=== PATIENT | male | born 2000 | race Caucasian/White ===

== ENCOUNTER 2020-07-04 09:29 | Day surgery (SDC) | payer OTHER ==
[2020-07-04] MEDS ORDERED: Ondansetron 4 MG/2 ML SDV IVPUSH ONE (09:54)
[2020-07-04] MEDS ORDERED: Sodium Chloride 0.9% 1,000 ML IV ONE (09:54)
[2020-07-04] MEDS ORDERED: Famotidine 20 MG/2 ML SDV IVPUSH ONE (09:54)
[2020-07-04] MEDS ORDERED: Morphine 4 MG/ML Syringe IVPUSH ONE ×2 (09:54→13:33)
[2020-07-04] MEDS ORDERED: Sodium Chloride 0.9% 2.5 ML Syringe FLUSH PRN (09:54)
[2020-07-04] MEDS ORDERED: Sodium Chloride 0.9% 10 ML Syringe FLUSH PRN (09:54)
--- NOTE | 2020-07-04 09:57 | EDM.PDOC ---
ED HPI GENERAL MEDICAL PROBLEM - General Chief Complaint: Abdominal Pain Stated Complaint: STOMACH PAIN AND TESTICLES PAIN Time Seen by Provider: 07/04/20 09:51 Source of Information: Reports: Patient History Limitations: Reports: No Limitations - History of Present Illness INITIAL COMMENTS - FREE TEXT/NARRATIVE: 20M no PMHx nor PSHx presents for abdominal pain, N/V, and testicular pain since around 3AM. [place] fine last night. Woke up from sleep with intense pain. Has had many episodes of non-bloody emesis. Pain feels like it is from lower pelvis shooting up into abdomen and down into testicles. Pain is b/l. No known fevers. No cough, SOB. No dysuria, hematuria. No penile discharge. Patient is not sexually active. Abdominal Pain Pain Score (Numeric/FACES): 10 - Related Data Allergies Allergy/AdvReac Type Severity Reaction Status Date / Time No Known Allergies Allergy Verified 07/04/20 09:42 Home Meds: Home Meds . [No Known Home Meds] 07/04/20 [History] Past Medical History - Past Health History Medical/Surgical History: Denies Medical/Surgical History - Infectious Disease History Infectious Disease History: Reports: None - Past Surgical History HEENT Surgical History: Reports: Adenoidectomy, Tonsillectomy Social & Family History - Family History Family Medical History: Noncontributory - Tobacco Use Years of Tobacco use: 7 - Caffeine Use Caffeine Use: Reports: None - Recreational Drug Use Recreational Drug Use: Yes Recreational Drug Type: Reports: Marijuana/Hashish Recreational Drug Use Frequency: Socially ED ROS GENERAL - Review of Systems Review Of Systems: Comprehensive ROS is negative, except as noted in HPI. ED EXAM, GI/ABD - Physical Exam Exam: See Below Exam Limited By: No Limitations General Appearance: Alert, WD/WN, Other (uncomfortable appearing holding lower abdomen ) Ears: Normal External Exam Nose: Normal Inspection Throat/Mouth: Normal Inspection, Normal Voice, No Airway Compromise Head: Atraumatic, Normocephalic Respiratory/Chest: No Respiratory Distress, Lungs Clear, Normal Breath Sounds, No Accessory Muscle Use Cardiovascular: Normal Peripheral Pulses, Regular Rate, Rhythm GI/Abdominal Exam: Soft, No Distention, Other (diffuse abdominal TTP without guarding or rebound) (Male) Exam: No Hernia, Normal Inspection, Circumcised, Cremasteric Reflex, Testicular Tenderness (L), Testicular Tenderness (R). No: Suprapubic Fullness, Testicular Mass, Urethral Discharge Extremities: Normal Inspection Neurological: Alert Psychiatric: Normal Affect, Normal Mood Skin Exam: Warm, Dry, Intact, Normal Color Course - Vital Signs Last Recorded V/S: Last Vital Signs Temp 97.0 F 07/04/20 09:43 Pulse 106 H 07/04/20 13:00 Resp 13 07/04/20 13:00 BP 131/86 07/04/20 13:00 Pulse Ox 96 07/04/20 13:00 - Orders/Labs/Meds Orders: Active Orders 24 hr Category Date Time Status Scrotal Duplex Ltd [US] Routine Exams 07/04/20 Taken Piperacillin/Tazobactam [Piperacil-Tazobact] 3.375 gm Med 07/04/20 13:29 Active Sodium Chloride 0.9% [Normal Saline] 50 ml IV ONETIME Sodium Chloride 0.9% [Saline Flush] Med 07/04/20 09:54 Active 10 ml FLUSH ASDIRECTED PRN Sodium Chloride 0.9% [Saline Flush] Med 07/04/20 09:54 Active 2.5 ml FLUSH ASDIRECTED PRN Saline Lock Insert [OM.PC] Stat Oth 07/04/20 09:54 Ordered Medication Orders Piperacillin Sod/Tazobactam (Sod 3.375 gm/ Sodium Chloride) 50 mls @ 100 mls/hr IV ONETIME ONE Stop: 07/04/20 13:58 Sodium Chloride (Saline Flush) 10 ml FLUSH ASDIRECTED PRN PRN Reason: Keep Vein Open Last Admin: 07/04/20 10:13 Dose: 10 ml Documented by: BRITTNI Sodium Chloride (Saline Flush) 2.5 ml FLUSH ASDIRECTED PRN PRN Reason: Keep Vein Open Last Admin: 07/04/20 10:13 Dose: 2.5 ml Documented by: BRITTNI Labs: Laboratory Tests 07/04/20 07/04/20 07/04/20 Range/Units 10:10 10:10 10:10 WBC 16.63 H (4.0-11.0) K/uL RBC 5.75 (4.50-5.90) M/uL Hgb 17.3 H (13.0-17.0) g/dL Hct 48.6 (38.0-50.0) % MCV 84.5 (80.0-98.0) fL MCH 30.1 (27.0-32.0) pg MCHC 35.6 (31.0-37.0) g/dL RDW Std Deviation 38.2 (28.0-62.0) fl RDW Coeff of [place] 13 (11.0-15.0) % Plt Count 278 (150-400) K/uL MPV 10.10 (7.40-12.00) fL Neut % (Auto) 87.8 H (48.0-80.0) % Lymph % (Auto) 5.5 L (16.0-40.0) % [place] % (Auto) 6.4 (0.0-15.0) % Eos % (Auto) 0.1 (0.0-7.0) % Baso % (Auto) 0.2 (0.0-1.5) % Neut # (Auto) 14.6 H (1.4-5.7) K/uL Lymph # (Auto) 0.9 (0.6-2.4) K/uL [place] # (Auto) 1.1 H (0.0-0.8) K/uL Eos # (Auto) 0.0 (0.0-0.7) K/uL Baso # (Auto) 0.0 (0.0-0.1) K/uL Nucleated RBC % 0.0 /100WBC Nucleated RBCs # 0 K/uL Lactate 0.9 (0.20-2.00) mmol/L Sodium 136 (136-148) mmol/L Potassium 3.8 (3.5-5.1) mmol/L Chloride 99 (98-107) mmol/L Carbon Dioxide 26.4 (21.0-32.0) mmol/L BUN 14 (7.0-18.0) mg/dL Creatinine 0.9 (0.8-1.3) mg/dL Est Cr Clr Drug Dosing 126.00 mL/min Estimated GFR (MDRD) > 60.0 ml/min Glucose 100 (74-106) mg/dL Calcium 9.5 (8.5-10.1) mg/dL Total Bilirubin 1.3 H (0.2-1.0) mg/dL AST 38 H (15-37) IU/L ALT 33 (14-63) IU/L Alkaline Phosphatase 75 (46-116) U/L Total Protein 8.4 H (6.4-8.2) g/dL Albumin 5.4 H (3.4-5.0) g/dL Globulin 3.0 (2.6-4.0) g/dL Albumin/Globulin Ratio 1.8 H (0.9-1.6) Lipase 48 L (73-393) U/L Urine Color Urine Appearance Urine pH (5.0-8.0) Ur Specific [place] (1.001-1.035) Urine Protein (NEGATIVE) mg/dL Urine Glucose (UA) (NEGATIVE) mg/dL Urine Ketones (NEGATIVE) mg/dL Urine Occult Blood (NEGATIVE) Urine Nitrite (NEGATIVE) Urine Bilirubin (NEGATIVE) Urine Urobilinogen (<2.0) EU/dL Ur Leukocyte Esterase (NEGATIVE) Urine RBC (0-2/HPF) Urine WBC (0-5/HPF) Ur Epithelial Cells (NONE-FEW) Urine Bacteria (NEGATIVE) 07/04/20 Range/Units 12:25 WBC (4.0-11.0) K/uL RBC (4.50-5.90) M/uL Hgb (13.0-17.0) g/dL Hct (38.0-50.0) % MCV (80.0-98.0) fL MCH (27.0-32.0) pg MCHC (31.0-37.0) g/dL RDW Std Deviation (28.0-62.0) fl RDW Coeff of [place] (11.0-15.0) % Plt Count (150-400) K/uL MPV (7.40-12.00) fL Neut % (Auto) (48.0-80.0) % Lymph % (Auto) (16.0-40.0) % [place] % (Auto) (0.0-15.0) % Eos % (Auto) (0.0-7.0) % Baso % (Auto) (0.0-1.5) % Neut # (Auto) (1.4-5.7) K/uL Lymph # (Auto) (0.6-2.4) K/uL [place] # (Auto) (0.0-0.8) K/uL Eos # (Auto) (0.0-0.7) K/uL Baso # (Auto) (0.0-0.1) K/uL Nucleated RBC % /100WBC Nucleated RBCs # K/uL Lactate (0.20-2.00) mmol/L Sodium (136-148) mmol/L Potassium (3.5-5.1) mmol/L Chloride (98-107) mmol/L Carbon Dioxide (21.0-32.0) mmol/L BUN (7.0-18.0) mg/dL Creatinine (0.8-1.3) mg/dL Est Cr Clr Drug Dosing mL/min Estimated GFR (MDRD) ml/min Glucose (74-106) mg/dL Calcium (8.5-10.1) mg/dL Total Bilirubin (0.2-1.0) mg/dL AST (15-37) IU/L ALT (14-63) IU/L Alkaline Phosphatase (46-116) U/L Total Protein (6.4-8.2) g/dL Albumin (3.4-5.0) g/dL Globulin (2.6-4.0) g/dL Albumin/Globulin Ratio (0.9-1.6) Lipase (73-393) U/L Urine Color YELLOW Urine Appearance CLEAR Urine pH 6.0 (5.0-8.0) Ur Specific [place] 1.025 (1.001-1.035) Urine Protein NEGATIVE (NEGATIVE) mg/dL Urine Glucose (UA) NEGATIVE (NEGATIVE) mg/dL Urine Ketones >=80 (NEGATIVE) mg/dL Urine Occult Blood NEGATIVE (NEGATIVE) Urine Nitrite NEGATIVE (NEGATIVE) Urine Bilirubin NEGATIVE (NEGATIVE) Urine Urobilinogen 1.0 (<2.0) EU/dL Ur Leukocyte Esterase TRACE H (NEGATIVE) Urine RBC 0-2 (0-2/HPF) Urine WBC 3-6 (0-5/HPF) Ur Epithelial Cells FEW (NONE-FEW) Urine Bacteria RARE (NEGATIVE) Meds: Medications Generic Name Dose Route Start Last Admin Trade Name Freq PRN Reason Stop Dose Admin Piperacillin Sod/Tazobactam 50 mls @ 100 mls/hr 07/04/20 13:29 Sod 3.375 gm/ Sodium Chloride IV 07/04/20 13:58 ONETIME ONE Sodium Chloride 10 ml 07/04/20 09:54 07/04/20 10:13 Saline Flush FLUSH 10 ml ASDIRECTED PRN Administration Keep Vein Open Sodium Chloride 2.5 ml 07/04/20 09:54 07/04/20 10:13 Saline Flush FLUSH 2.5 ml ASDIRECTED PRN Administration Keep Vein Open Discontinued Medications Generic Name Dose Route Start Last Admin Trade Name Freq PRN Reason Stop Dose Admin Famotidine 20 mg 07/04/20 09:54 07/04/20 10:05 Pepcid IVPUSH 07/04/20 09:55 20 mg ONETIME ONE Administration Sodium Chloride 1,000 mls @ 999 mls/hr 07/04/20 09:54 07/04/20 10:04 Normal Saline IV 07/04/20 10:54 999 mls/hr .Bolus ONE Administration Iopamidol 80 ml 07/04/20 13:16 07/04/20 13:17 Isovue Multipack-370 (76%) IVPUSH 07/04/20 13:17 80 ml ONETIME STA Administration Morphine Sulfate 4 mg 07/04/20 09:54 07/04/20 10:13 Morphine IVPUSH 07/04/20 09:55 4 mg ONETIME ONE Administration Morphine Sulfate 4 mg 07/04/20 13:33 Morphine IVPUSH 07/04/20 13:34 ONETIME ONE Ondansetron HCl 4 mg 07/04/20 09:54 07/04/20 10:04 Zofran IVPUSH 07/04/20 09:55 4 mg ONETIME ONE Administration - Re-Assessments/Exams Free Text/Narrative Re-Assessment/Exam: 07/04/20 13:37 Dr. Lawton agrees to admit to her service for acute appendicitis. Departure - Departure Time of Disposition: 13:36 Disposition: Admitted As Inpatient 66 Clinical Impression: Appendicitis Qualifiers: Appendicitis type: acute appendicitis Acute appendicitis type: unspecified acute appendicitis type Qualified Code(s): K35.80 - Unspecified acute appendicitis - Discharge Information Referrals: PCP,None [Primary Care Provider] - Forms: ED Department Discharge Sepsis Event Note (ED) - Evaluation Sepsis Screening Result: No Definite Risk - Focused Exam Vital Signs: Vital Signs Temp Pulse Resp BP Pulse Ox 07/04/20 13:00 106 H 13 131/86 96 07/04/20 09:43 97.0 F 87 16 135/72 98 - My Orders Last 24 Hours: My Active Orders 07/04/20 Scrotal Duplex Ltd [US] Routine 07/04/20 09:54 Sodium Chloride 0.9% [Saline Flush] 10 ml FLUSH ASDIRECTED PRN Sodium Chloride 0.9% [Saline Flush] 2.5 ml FLUSH ASDIRECTED PRN Saline Lock Insert [OM.PC] Stat 07/04/20 13:29 Piperacillin/Tazobactam [Piperacil-Tazobact] 3.375 gm Sodium Chloride 0.9% [Normal Saline] 50 ml IV ONETIME - Assessment/Plan Last 24 Hours: My Active Orders 07/04/20 Scrotal Duplex Ltd [US] Routine 07/04/20 09:54 Sodium Chloride 0.9% [Saline Flush] 10 ml FLUSH ASDIRECTED PRN Sodium Chloride 0.9% [Saline Flush] 2.5 ml FLUSH ASDIRECTED PRN Saline Lock Insert [OM.PC] Stat 07/04/20 13:29 Piperacillin/Tazobactam [Piperacil-Tazobact] 3.375 gm Sodium Chloride 0.9% [Normal Saline] 50 ml IV ONETIME
[2020-07-04 10:54] LABS: BLOOD UREA NITROGEN,BUN 14 mg/dL (7.0-18.0); CARBON DIOXIDE,CO2 26.4 mmol/L (21.0-32.0); CHLORIDE,CL 99 mmol/L (98-107); GLUCOSE RANDOM 100 mg/dL (74-106); LIPASE 48 U/L (73-393); POTASSIUM,K 3.8 mmol/L (3.5-5.1); SODIUM,NA 136 mmol/L (136-148)
--- NOTE | 2020-07-04 12:08 | US ---
INDICATION: Testicular pain, clinical concern of torsion versus epididymitis TECHNIQUE: Ultrasound of the scrotum and contents. Sonographic mina-scale images were obtained with spectral and color Doppler waveform and spectral waveform analysis of the testicles. COMPARISON: None FINDINGS: Right testicle: 4.9 x 2.0 x 3.0 cm. Normal echotexture. No masses. No suspicious calcifications. Normal arterial and venous and blood flow using Doppler and spectral waveform analysis. Left testicle: 4.9 x 2.3 x 2.9 cm. Normal echotexture. No masses. No suspicious calcifications. Normal arterial and venous and blood flow using Doppler and spectral waveform analysis. Epididymis: There is a 0.3 cm cyst on the left epididymis. Normal blood flow. Other: There is a left-sided varicocele. No sign of hydrocele. No sign of varicocele. Scrotal wall is normal. IMPRESSION: No intratesticular mass, torsion, or evidence for epididymitis. Left varicocele. Tiny cyst on the left epididymis. Dictated by Ama Scott MD @ Jul 04 2020 12:06PM Signed by Dr. Ama Scott @ Jul 04 2020 12:06PM
[2020-07-04] MEDS ORDERED: Iopamidol 755 MG/ML 500 ML Multipack Bottle IVPUSH STA (13:16)
--- NOTE | 2020-07-04 13:21 | CT ---
INDICATION: Abdominal pain. TECHNIQUE: Volumetric helical scanning of the abdomen and pelvis was performed with 80 cc of Isovue 370 contrast material IV. Coronal and sagittal reconstructions were obtained. COMPARISON: None. FINDINGS: And inflamed retrocecal appendix measuring up to 10 mm in diameter is noted on images 80-102 of series 201. Several appendicoliths are noted in the appendix. Edema in the periappendiceal fat is noted. No periappendiceal abscess or free air is demonstrated. A tiny amount of free fluid is noted in the pelvis. The liver is normal in size, shape and attenuation. No bile duct dilation is evident. The spleen is within normal limits. The adrenal glands are unremarkable. The pancreas is within normal limits. The kidneys are unremarkable. No lymphadenopathy is evident. The prostate is unremarkable. The lung bases are clear. Noncalcified 5 mm left lower lobe nodules are noted on images 6 and 18 of series 201. The heart is normal in size. IMPRESSION: 1. Acute retrocecal appendicitis without clear evidence of perforation. 2. Two noncalcified 5 mm left lower lobe base nodules. In accordance with Fleischner Society Guidelines (see below), if the patient is a low risk for lung cancer, no further evaluation is necessary. If he has a smoking history or is otherwise at high risk for lung cancer, a [address] is recommended. FLEISCHNER SOCIETY GUIDELINES: LOW RISK: - nodule less than 6 mm: No follow-up needed. - nodule 6-8 mm: Initial follow-up CT at 6-12 months and then at 18-24 months if no change. - nodule greater than 8 mm: Follow-up CTs at around 3, 9, and 24 months. Dynamic contrast-enhanced CT, PET, and/or biopsy. MULTIPLE LOW RISK: - nodule less than 6 mm: No follow-up needed. - nodule 6-8 mm: CT at 3-6 months, then consider CT at 18-24 months. - nodule greater than 8 mm: CT at 3-6 months, then consider CT at 18-24 months. HIGH RISK: - nodule less than 6 mm: Follow-up at 12 months. If no change, no further imaging needed. - nodule 6-8 mm: Initial follow-up CT at 3-6 months and then at 9-12 and 24 months if no change. - nodule greater than 8 mm: Follow-up CTs at around 3, 9, and 24 months. Dynamic contrast-enhanced CT, PET, and/or biopsy. MULTIPLE HIGH RISK: - nodule less than 6 mm: Optional CT at 12 months. - nodule 6-8 mm: CT at 3-6 months, then at 18-24 months. - nodule greater than 8 mm: CT at 3-6 months, then at 18-24 months. HIGH RISK is defined as one or more of the following: - at least 20 pack-year smoking history or equivalent second-hand exposure. - personal history of cancer or family history of lung cancer. - occupational exposure (asbestos, beryllium, silica, uranium, radon) - chronic interstitial/fibrotic lung disease. Please note that all CT scans at this facility use dose modulation, iterative reconstruction, and/or weight-based dosing when appropriate to reduce radiation dose to as low as reasonably achievable. Dictated by Milton Littlejohn MD @ Jul 04 2020 1:14PM Signed by Dr. Milton Littlejohn @ Jul 04 2020 1:20PM
[2020-07-04] MEDS ORDERED: Piperacillin/Tazobactam 3.375 GM in Sodium Chloride 0.9% 50 ML IV ONE (13:29)
[2020-07-04] MEDS ORDERED: Midazolam 1 MG/ML 2 ML SDV ONE (14:18)
[2020-07-04] MEDS ORDERED: Propofol 200 MG/20 ML SDV ONE (14:18)
[2020-07-04] MEDS ORDERED: fentaNYL 250 MCG/5 ML SDV ONE (14:18)
[2020-07-04] MEDS ORDERED: Ondansetron 4 MG/2 ML SDV ONE (14:20)
[2020-07-04] MEDS ORDERED: Dexamethasone 4 MG/ML 5 ML MDV ONE (14:20)
[2020-07-04] MEDS ORDERED: Glycopyrrolate 0.2 MG/ML SDV ONE (14:34)
[2020-07-04] MEDS ORDERED: Rocuronium Bromide 50 MG/5 ML Syringe ONE (14:34)
[2020-07-04] MEDS ORDERED: Succinylcholine/Sod PF 100 MG/5 ML SYRINGE IV ONE (14:34)
[2020-07-04] MEDS ORDERED: Bupivacaine 0.5% 10 ML SDV ONE (14:41)
[2020-07-04] MEDS ORDERED: Lactated Ringers 1,000 ML IV SCH (14:45)
--- NOTE | 2020-07-04 14:45 | PCM.HP.2 ---
H&P History of Present Illness - General Date of Service: 07/04/20 Admit Problem/Dx: Admission Diagnosis/Problem Admission Diagnosis/Problem Appendicitis Source of Information: Patient History Limitations: Reports: No Limitations - History of Present Illness Initial Comments - Free Text/Narative: Patient is a 20 year old male who presented to the ED with right testicular little n. The pain woke him up from sleep at 3 am. He states that he had lower abdominal pain that radiated into his testicle. This was associated with malaise, nausea, dry heaves and vomiting. He presented to the ER concerned for COVID. His vitals were stable on admission. He was afebrile. He was tender in the RLQ. Given his testicular pain, he was worked up for torsion. He had a left varicocele, but it was otherwise normal. CBC was performed that showed a leukocytosis with a left shift. He underwent a CT abdomen pelvis that showed acute appendicitis. He was given IVF, IV pain medications and IV zosyn. Abdominal Pain Pain Score (Numeric/FACES): 10 - Related Data Allergies/Adverse Reactions: Allergies Allergy/AdvReac Type Severity Reaction Status Date / Time No Known Allergies Allergy Verified 07/04/20 09:42 Home Medications: Home Meds . [No Known Home Meds] 07/04/20 [History] Past Medical History - Past Health History Medical/Surgical History: Denies Medical/Surgical History Psychiatric History: Reports: ADD, Depression - Infectious Disease History Infectious Disease History: Reports: None - Past Surgical History HEENT Surgical History: Reports: Adenoidectomy, Oral Surgery, Tonsillectomy Social & Family History - Family History Family Medical History: Noncontributory - Tobacco Use Years of Tobacco use: 7 - Caffeine Use Caffeine Use: Reports: None - Recreational Drug Use Recreational Drug Use: Yes Recreational Drug Type: Reports: Marijuana/Hashish Recreational Drug Use Frequency: Socially H&P Review of Systems - Review of Systems: Review Of Systems: Comprehensive ROS is negative, except as noted in HPI. Exam - Exam Exam: See Below - Vital Signs Vital Signs: Last Vital Signs Temp 36.1 C 07/04/20 09:43 Pulse 106 H 07/04/20 13:00 Resp 13 07/04/20 13:00 BP 131/86 07/04/20 13:00 Pulse Ox 96 07/04/20 13:00 Weight: 68.039 kg - Exam General: Alert, Oriented HEENT: Conjunctiva Clear, Mucosa Moist & [place], Posterior Pharynx Clear Lungs: Clear to Auscultation, Normal Respiratory Effort Cardiovascular: Regular Rate, Regular Rhythm GI/Abdominal Exam: Soft, No Distention, Guarding (RLQ), Rebound (RLQ), Tender (RLQ) Back Exam: Normal Inspection Extremities: Normal Inspection - Patient Data Lab Results Last 24 hrs: Laboratory Results - last 24 hr 07/04/20 07/04/20 07/04/20 Range/Units 10:10 10:10 10:10 WBC 16.63 H (4.0-11.0) K/uL RBC 5.75 (4.50-5.90) M/uL Hgb 17.3 H (13.0-17.0) g/dL Hct 48.6 (38.0-50.0) % MCV 84.5 (80.0-98.0) fL MCH 30.1 (27.0-32.0) pg MCHC 35.6 (31.0-37.0) g/dL RDW Std Deviation 38.2 (28.0-62.0) fl RDW Coeff of [place] 13 (11.0-15.0) % Plt Count 278 (150-400) K/uL MPV 10.10 (7.40-12.00) fL Neut % (Auto) 87.8 H (48.0-80.0) % Lymph % (Auto) 5.5 L (16.0-40.0) % [place] % (Auto) 6.4 (0.0-15.0) % Eos % (Auto) 0.1 (0.0-7.0) % Baso % (Auto) 0.2 (0.0-1.5) % Neut # (Auto) 14.6 H (1.4-5.7) K/uL Lymph # (Auto) 0.9 (0.6-2.4) K/uL [place] # (Auto) 1.1 H (0.0-0.8) K/uL Eos # (Auto) 0.0 (0.0-0.7) K/uL Baso # (Auto) 0.0 (0.0-0.1) K/uL Nucleated RBC % 0.0 /100WBC Nucleated RBCs # 0 K/uL Lactate 0.9 (0.20-2.00) mmol/L Sodium 136 (136-148) mmol/L Potassium 3.8 (3.5-5.1) mmol/L Chloride 99 (98-107) mmol/L Carbon Dioxide 26.4 (21.0-32.0) mmol/L BUN 14 (7.0-18.0) mg/dL Creatinine 0.9 (0.8-1.3) mg/dL Est Cr Clr Drug Dosing 126.00 mL/min Estimated GFR (MDRD) > 60.0 ml/min Glucose 100 (74-106) mg/dL Calcium 9.5 (8.5-10.1) mg/dL Total Bilirubin 1.3 H (0.2-1.0) mg/dL AST 38 H (15-37) IU/L ALT 33 (14-63) IU/L Alkaline Phosphatase 75 (46-116) U/L Total Protein 8.4 H (6.4-8.2) g/dL Albumin 5.4 H (3.4-5.0) g/dL Globulin 3.0 (2.6-4.0) g/dL Albumin/Globulin Ratio 1.8 H (0.9-1.6) Lipase 48 L (73-393) U/L Urine Color Urine Appearance Urine pH (5.0-8.0) Ur Specific [place] (1.001-1.035) Urine Protein (NEGATIVE) mg/dL Urine Glucose (UA) (NEGATIVE) mg/dL Urine Ketones (NEGATIVE) mg/dL Urine Occult Blood (NEGATIVE) Urine Nitrite (NEGATIVE) Urine Bilirubin (NEGATIVE) Urine Urobilinogen (<2.0) EU/dL Ur Leukocyte Esterase (NEGATIVE) Urine RBC (0-2/HPF) Urine WBC (0-5/HPF) Ur Epithelial Cells (NONE-FEW) Urine Bacteria (NEGATIVE) 07/04/20 Range/Units 12:25 WBC (4.0-11.0) K/uL RBC (4.50-5.90) M/uL Hgb (13.0-17.0) g/dL Hct (38.0-50.0) % MCV (80.0-98.0) fL MCH (27.0-32.0) pg MCHC (31.0-37.0) g/dL RDW Std Deviation (28.0-62.0) fl RDW Coeff of [place] (11.0-15.0) % Plt Count (150-400) K/uL MPV (7.40-12.00) fL Neut % (Auto) (48.0-80.0) % Lymph % (Auto) (16.0-40.0) % [place] % (Auto) (0.0-15.0) % Eos % (Auto) (0.0-7.0) % Baso % (Auto) (0.0-1.5) % Neut # (Auto) (1.4-5.7) K/uL Lymph # (Auto) (0.6-2.4) K/uL [place] # (Auto) (0.0-0.8) K/uL Eos # (Auto) (0.0-0.7) K/uL Baso # (Auto) (0.0-0.1) K/uL Nucleated RBC % /100WBC Nucleated RBCs # K/uL Lactate (0.20-2.00) mmol/L Sodium (136-148) mmol/L Potassium (3.5-5.1) mmol/L Chloride (98-107) mmol/L Carbon Dioxide (21.0-32.0) mmol/L BUN (7.0-18.0) mg/dL Creatinine (0.8-1.3) mg/dL Est Cr Clr Drug Dosing mL/min Estimated GFR (MDRD) ml/min Glucose (74-106) mg/dL Calcium (8.5-10.1) mg/dL Total Bilirubin (0.2-1.0) mg/dL AST (15-37) IU/L ALT (14-63) IU/L Alkaline Phosphatase (46-116) U/L Total Protein (6.4-8.2) g/dL Albumin (3.4-5.0) g/dL Globulin (2.6-4.0) g/dL Albumin/Globulin Ratio (0.9-1.6) Lipase (73-393) U/L Urine Color YELLOW Urine Appearance CLEAR Urine pH 6.0 (5.0-8.0) Ur Specific [place] 1.025 (1.001-1.035) Urine Protein NEGATIVE (NEGATIVE) mg/dL Urine Glucose (UA) NEGATIVE (NEGATIVE) mg/dL Urine Ketones >=80 (NEGATIVE) mg/dL Urine Occult Blood NEGATIVE (NEGATIVE) Urine Nitrite NEGATIVE (NEGATIVE) Urine Bilirubin NEGATIVE (NEGATIVE) Urine Urobilinogen 1.0 (<2.0) EU/dL Ur Leukocyte Esterase TRACE H (NEGATIVE) Urine RBC 0-2 (0-2/HPF) Urine WBC 3-6 (0-5/HPF) Ur Epithelial Cells FEW (NONE-FEW) Urine Bacteria RARE (NEGATIVE) Result Diagrams: 07/04/20 10:10 07/04/20 10:10 Sepsis Event Note - Evaluation Sepsis Screening Result: No Definite Risk - Focused Exam Vital Signs: Vital Signs Temp Pulse Resp BP Pulse Ox 07/04/20 13:00 106 H 13 131/86 96 07/04/20 09:43 36.1 C 87 16 135/72 98 - Problem List (1) Appendicitis SNOMED Code(s): 96074185 ICD Code: K37 - UNSPECIFIED APPENDICITIS Status: Acute Current Visit: Yes Qualifiers: Appendicitis type: acute appendicitis Acute appendicitis type: unspecified acute appendicitis type Qualified Code(s): K35.80 - Unspecified acute appendicitis Problem List Initiated/Reviewed/Updated: Yes Orders Last 24hrs: Active Orders 24 hr Category Date Time Status Admission Status [Patient Status] [ADT] Routine ADT 07/04/20 14:00 Active Scrotal Duplex Ltd [US] Routine Exams 07/04/20 Taken CORONAVIRUS COVID-19 PCR PH[facility] Stat Lab 07/04/20 13:49 Ordered Sodium Chloride 0.9% [Saline Flush] Med 07/04/20 09:54 Active 10 ml FLUSH ASDIRECTED PRN Sodium Chloride 0.9% [Saline Flush] Med 07/04/20 09:54 Active 2.5 ml FLUSH ASDIRECTED PRN Saline Lock Insert [OM.PC] Stat Oth 07/04/20 09:54 Ordered Medication Orders Sodium Chloride (Saline Flush) 10 ml FLUSH ASDIRECTED PRN PRN Reason: Keep Vein Open Last Admin: 07/04/20 10:13 Dose: 10 ml Documented by: VIALMEL Sodium Chloride (Saline Flush) 2.5 ml FLUSH ASDIRECTED PRN PRN Reason: Keep Vein Open Last Admin: 07/04/20 10:13 Dose: 2.5 ml Documented by: BRITTNI Assessment/Plan Comment:: The patient and I discussed the pathophysiology of acute appendicitis. I explained the need for an appendectomy. I will attempt it laparoscopically but convert to open should I be unable to perform it safely. We discussed the expected perioperative course for perforated vs non-perforated appendicitis. I explained the lifting restrictions post op for each. We talked about the risks including bleeding, infection or damage to surrounding structures. He verbalized understanding and wishes to proceed.
--- NOTE | 2020-07-04 14:56 | PCM.PREANE ---
Preanesthetic Assessment - Anesthesia/Transfusion/Family Hx Family History of Anesthesia Reaction: No Additional History: Patient states he drinks alcohol socially, uses marijuana and vapes daily but has not used anything today. - Review of Systems General: No Symptoms Pulmonary: No Symptoms Cardiovascular: No Symptoms Gastrointestinal: Abdominal Pain Neurological: No Symptoms Other: Reports: None - Physical Assessment Vital Signs: Last Vital Signs Temp 36.1 C 07/04/20 09:43 Pulse 106 H 07/04/20 13:00 Resp 13 07/04/20 13:00 BP 131/86 07/04/20 13:00 Pulse Ox 96 07/04/20 13:00 Height: 1.78 m Weight: 68.039 kg ASA Class: 2 Mental Status: Alert & Oriented x3 Airway Class: Mallampati = 2 Dentition: Reports: Normal Dentition ROM/Head Extension: Full - Lab Values: Laboratory Last Values WBC 16.63 K/uL (4.0-11.0) H 07/04/20 10:10 RBC 5.75 M/uL (4.50-5.90) 07/04/20 10:10 Hgb 17.3 g/dL (13.0-17.0) H 07/04/20 10:10 Hct 48.6 % (38.0-50.0) 07/04/20 10:10 MCV 84.5 fL (80.0-98.0) 07/04/20 10:10 MCH 30.1 pg (27.0-32.0) 07/04/20 10:10 MCHC 35.6 g/dL (31.0-37.0) 07/04/20 10:10 RDW Std Deviation 38.2 fl (28.0-62.0) 07/04/20 10:10 RDW Coeff of [place] 13 % (11.0-15.0) 07/04/20 10:10 Plt Count 278 K/uL (150-400) 07/04/20 10:10 MPV 10.10 fL (7.40-12.00) 07/04/20 10:10 Neut % (Auto) 87.8 % (48.0-80.0) H 07/04/20 10:10 Lymph % (Auto) 5.5 % (16.0-40.0) L 07/04/20 10:10 [place] % (Auto) 6.4 % (0.0-15.0) 07/04/20 10:10 Eos % (Auto) 0.1 % (0.0-7.0) 07/04/20 10:10 Baso % (Auto) 0.2 % (0.0-1.5) 07/04/20 10:10 Neut # (Auto) 14.6 K/uL (1.4-5.7) H 07/04/20 10:10 Lymph # (Auto) 0.9 K/uL (0.6-2.4) 07/04/20 10:10 [place] # (Auto) 1.1 K/uL (0.0-0.8) H 07/04/20 10:10 Eos # (Auto) 0.0 K/uL (0.0-0.7) 07/04/20 10:10 Baso # (Auto) 0.0 K/uL (0.0-0.1) 07/04/20 10:10 Nucleated RBC % 0.0 /100WBC 07/04/20 10:10 Nucleated RBCs # 0 K/uL 07/04/20 10:10 Lactate 0.9 mmol/L (0.20-2.00) 07/04/20 10:10 Sodium 136 mmol/L (136-148) 07/04/20 10:10 Potassium 3.8 mmol/L (3.5-5.1) 07/04/20 10:10 Chloride 99 mmol/L (98-107) 07/04/20 10:10 Carbon Dioxide 26.4 mmol/L (21.0-32.0) 07/04/20 10:10 BUN 14 mg/dL (7.0-18.0) 07/04/20 10:10 Creatinine 0.9 mg/dL (0.8-1.3) 07/04/20 10:10 Est Cr Clr Drug Dosing 126.00 mL/min 07/04/20 10:10 Estimated GFR (MDRD) > 60.0 ml/min 07/04/20 10:10 Glucose 100 mg/dL (74-106) 07/04/20 10:10 Calcium 9.5 mg/dL (8.5-10.1) 07/04/20 10:10 Total Bilirubin 1.3 mg/dL (0.2-1.0) H 07/04/20 10:10 AST 38 IU/L (15-37) H 07/04/20 10:10 ALT 33 IU/L (14-63) 07/04/20 10:10 Alkaline Phosphatase 75 U/L (46-116) 07/04/20 10:10 Total Protein 8.4 g/dL (6.4-8.2) H 07/04/20 10:10 Albumin 5.4 g/dL (3.4-5.0) H 07/04/20 10:10 Globulin 3.0 g/dL (2.6-4.0) 07/04/20 10:10 Albumin/Globulin Ratio 1.8 (0.9-1.6) H 07/04/20 10:10 Lipase 48 U/L (73-393) L 07/04/20 10:10 Urine Color YELLOW 07/04/20 12:25 Urine Appearance CLEAR 07/04/20 12:25 Urine pH 6.0 (5.0-8.0) 07/04/20 12:25 Ur Specific [place] 1.025 (1.001-1.035) 07/04/20 12:25 Urine Protein NEGATIVE mg/dL (NEGATIVE) 07/04/20 12:25 Urine Glucose (UA) NEGATIVE mg/dL (NEGATIVE) 07/04/20 12:25 Urine Ketones >=80 mg/dL (NEGATIVE) 07/04/20 12:25 Urine Occult Blood NEGATIVE (NEGATIVE) 07/04/20 12:25 Urine Nitrite NEGATIVE (NEGATIVE) 07/04/20 12:25 Urine Bilirubin NEGATIVE (NEGATIVE) 07/04/20 12:25 Urine Urobilinogen 1.0 EU/dL (<2.0) 07/04/20 12:25 Ur Leukocyte Esterase TRACE (NEGATIVE) H 07/04/20 12:25 Urine RBC 0-2 (0-2/HPF) 07/04/20 12:25 Urine WBC 3-6 (0-5/HPF) 07/04/20 12:25 Ur Epithelial Cells FEW (NONE-FEW) 07/04/20 12:25 Urine Bacteria RARE (NEGATIVE) 07/04/20 12:25 - Allergies Allergies/Adverse Reactions: Allergies Allergy/AdvReac Type Severity Reaction Status Date / Time No Known Allergies Allergy Verified 07/04/20 09:42 - Anesthesia Plan Free Text/Narrative:: GA/ETT - Acknowledgements Anesthesia Type Planned: General Anesthesia Pt an Appropriate Candidate for the Planned Anesthesia: Yes Alternatives and Risks of Anesthesia Discussed w Pt/Guardian: Yes Pt/Guardian Understands and Agrees with Anesthesia Plan: Yes PreAnesthesia Questionnaire - Past Health History Medical/Surgical History: Denies Medical/Surgical History Psychiatric History: Reports: ADD, Depression - Infectious Disease History Infectious Disease History: Reports: None - Past Surgical History HEENT Surgical History: Reports: Adenoidectomy, Oral Surgery, Tonsillectomy - SUBSTANCE USE Tobacco Use Within Last Twelve Months: Vaping Recreational Drug Use History: Yes Recreational Drug Type: Reports: Marijuana/Hashish - HOME MEDS Home Medications: Home Meds . [No Known Home Meds] 07/04/20 [History] - CURRENT (IN HOUSE) MEDS Current Meds: Current Medications Lactated Ringer's (Ringers, Lactated) 1,000 mls @ 125 mls/hr IV ASDIRECTED MENDEZ Sodium Chloride (Saline Flush) 10 ml FLUSH ASDIRECTED PRN PRN Reason: Keep Vein Open Last Admin: 07/04/20 10:13 Dose: 10 ml Documented by: Sodium Chloride (Saline Flush) 2.5 ml FLUSH ASDIRECTED PRN PRN Reason: Keep Vein Open Last Admin: 07/04/20 10:13 Dose: 2.5 ml Documented by: Discontinued Medications Bupivacaine HCl (Sensorcaine-Mpf 0.5%) Confirm Administered Dose 20 ml .ROUTE .STK-MED ONE Stop: 07/04/20 14:42 Dexamethasone (Dexamethasone) Confirm Administered Dose 20 mg .ROUTE .STK-MED ONE Stop: 07/04/20 14:21 Famotidine (Pepcid) 20 mg IVPUSH ONETIME ONE Stop: 07/04/20 09:55 Last Admin: 07/04/20 10:05 Dose: 20 mg Documented by: Fentanyl (Sublimaze) Confirm Administered Dose 250 mcg .ROUTE .STK-MED ONE Stop: 07/04/20 14:19 Glycopyrrolate (Robinul) Confirm Administered Dose 0.4 mg .ROUTE .STK-MED ONE Stop: 07/04/20 14:35 Sodium Chloride (Normal Saline) 1,000 mls @ 999 mls/hr IV .Bolus ONE Stop: 07/04/20 10:54 Last Admin: 07/04/20 10:04 Dose: 999 mls/hr Documented by: Piperacillin Sod/Tazobactam (Sod 3.375 gm/ Sodium Chloride) 50 mls @ 100 mls/hr IV ONETIME ONE Stop: 07/04/20 13:58 Last Admin: 07/04/20 13:45 Dose: 100 mls/hr Documented by: Iopamidol (Isovue Multipack-370 (76%)) 80 ml IVPUSH ONETIME STA Stop: 07/04/20 13:17 Last Admin: 07/04/20 13:17 Dose: 80 ml Documented by: Lidocaine HCl (Xylocaine-Mpf 1%) Confirm Administered Dose 5 ml .ROUTE .STK-MED ONE Stop: 07/04/20 14:21 Midazolam HCl (Versed 1 Mg/Ml) Confirm Administered Dose 2 mg .ROUTE .STK-MED ONE Stop: 07/04/20 14:19 Morphine Sulfate (Morphine) 4 mg IVPUSH ONETIME ONE Stop: 07/04/20 09:55 Last Admin: 07/04/20 10:13 Dose: 4 mg Documented by: Morphine Sulfate (Morphine) 4 mg IVPUSH ONETIME ONE Stop: 07/04/20 13:34 Last Admin: 07/04/20 13:45 Dose: 4 mg Documented by: Ondansetron HCl (Zofran) 4 mg IVPUSH ONETIME ONE Stop: 07/04/20 09:55 Last Admin: 07/04/20 10:04 Dose: 4 mg Documented by: Ondansetron HCl (Zofran) Confirm Administered Dose 4 mg .ROUTE .STK-MED ONE Stop: 07/04/20 14:21 Propofol (Diprivan 20 Ml) Confirm Administered Dose 200 mg .ROUTE .STK-MED ONE Stop: 07/04/20 14:19 Rocuronium [place] (Rocuronium [place]) Confirm Administered Dose 50 mg .ROUTE .STK-MED ONE Stop: 07/04/20 14:35
[2020-07-04] MEDS ORDERED: fentaNYL 100 MCG/2 ML SDV IVPUSH PRN (16:34)
[2020-07-04] MEDS ORDERED: Octyl 2-Cyanoacrylate 1 Tube ONE (17:03)
[2020-07-04] MEDS ORDERED: Ketorolac 30 MG/ML SDV ONE (17:15)
[2020-07-04] MEDS ORDERED: HYDROmorphone 2 MG/ML Syringe IVPUSH PRN (17:28)
[2020-07-04] MEDS ORDERED: Ondansetron 4 MG/2 ML SDV IVPUSH PRN (17:28)
[2020-07-04] MEDS ORDERED: diphenhydrAMINE 25 MG Cap PO PRN (17:28)
--- NOTE | 2020-07-04 17:34 | PCM.OPNOTE ---
- General Post-Op/Procedure Note Date of Surgery/Procedure: 07/04/20 Operative Procedure(s): Laparoscopic appendectomy Findings: Enlarged and inflamed appendix with no perforation. Retrocecal. Pre Op Diagnosis: Acute appendicitis Post-Op Diagnosis: same Anesthesia Technique: General ET Tube Primary Surgeon: Tiffany Lawton Fluid Replacement, Intraop: 1,500 Output, Urine Amount: 400 EBL in mLs: 5 Condition: Good
--- NOTE | 2020-07-04 18:07 | PCM.POSTAN ---
POST ANESTHESIA ASSESSMENT - MENTAL STATUS Mental Status: Alert, Oriented - VITAL SIGNS Vital Signs: Last Vital Signs Temp 36.3 C 07/04/20 17:19 Pulse 87 07/04/20 17:57 Resp 12 07/04/20 17:57 BP 98/56 L 07/04/20 17:57 Pulse Ox 96 07/04/20 17:57 - RESPIRATORY Respiratory Status: Respiratory Rate WNL, Airway Patent, O2 Saturation Stable - CARDIOVASCULAR CV Status: Pulse Rate WNL, Blood Pressure Stable - GASTROINTESTINAL GI Status: No Symptoms - POST OP HYDRATION Hydration Status: Adequate & Stable
--- NOTE | 2020-07-04 20:25 | OR ---
SURGEON: TIFFANY LAWTON MD DATE OF PROCEDURE: 07/04/2020 PREOPERATIVE DIAGNOSIS: Acute appendicitis. POSTOPERATIVE DIAGNOSIS: Acute appendicitis. PROCEDURE PERFORMED: Laparoscopic appendectomy. PRIMARY SURGEON: Tiffany Lawton MD ANESTHESIA: General endotracheal anesthesia. FLUIDS: 1500 mL of crystalloid. ESTIMATED BLOOD LOSS: 5 mL. URINE OUTPUT: 400 mL. FINDINGS: Acutely enlarged and inflamed retrocecal appendix with no evidence of perforation. COMPLICATIONS: None. INDICATIONS: The patient is a 20-year-old male who developed an acute onset of abdominal pain earlier this morning. He presented to the emergency room. Workup revealed an elevated white count with a left shift. CT scan of the abdomen and pelvis showed an acute appendicitis. I explained the pathophysiology of appendicitis to the patient and his mother. I explained the need to perform an appendectomy. I will attempt it laparoscopically, but convert to open should I be unable to perform it safely. The patient and I discussed the expected perioperative course as well as the risks including bleeding, infection, or damage to surrounding structures. The patient verbalized understanding and wishes to proceed. PROCEDURE IN DETAIL: The patient was brought into the OR and placed on the OR table in supine position. A time-out was completed verifying the patient's name, age, date of , allergies, and procedure to be performed. General endotracheal anesthesia was induced. A Galvan catheter was placed and the left arm was tucked against the patient's side. The abdomen was prepped and draped in usual standard fashion. I anesthetized an area 2 fingerbreadths below the left subcostal margin in the midclavicular line with 0.5% Marcaine plain. An 11 blade was used to make a 1 cm incision in this area. I gained entry into the abdomen using a 5 mm optical trocar. All layers of the abdominal wall were visualized upon entry. The abdomen was insufflated and a 5 mm 30-degree scope was inserted into the abdomen. I inspected the area underneath my initial trocar placement. No damage to surrounding structures was noted. A 5 mm trocar was placed under direct visualization just left and lateral to the umbilicus. A 12 mm trocar was placed in the left lower quadrant under direct visualization as well. The patient was placed into Trendelenburg position and airplaned slightly to the left. I identified the tenia of the ascending colon and followed this down to the cecum. I identified the base of the appendix. The appendix was retrocecal and so I rotated the cecum medially and was able to identify the tip of the appendix. This was bluntly from the surrounding structures and brought anteriorly. The appendiceal mesentery was thickened and inflamed. I began my dissection along the appendiceal mesentery by creating a window between the base of the appendix and the appendiceal mesentery proximally. Once this was completed, an endoscopic stapling device was brought into the field. I stapled and fired across the base of the appendix using a 45 mm blue load of meliza. I then began dissection from proximal to distal along the appendiceal mesentery using a [place] dissector to create a window and a Harmonic scalpel device to dissect and seal the cut tissue. Once the appendix was freed of all the surrounding structures, photographs were taken. The appendix was then placed in an Endo Catch bag and removed through the 12 mm port site. I reinspected my operative field and it appeared hemostatic. A small amount of irrigation was used to suction up any free fluid around the area. I inspected the remainder of the abdomen and everything appeared normal. The 12 mm trocar was removed, and I closed the fascia at the left lower quadrant site using an interrupted 0 Vicryl suture with a Arnel-Marcos device. The 5 mm trocars were removed under direct visualization, the abdomen allowed to desufflate. The subcutaneous fat layer was closed with interrupted layers of 3-0 Vicryl suture. The skin was closed with a running 4-0 Monocryl stitch. The 5 mm trocar sites were closed with interrupted 4-0 Monocryl suture. Dermabond and sterile dressings were applied. The patient tolerated the procedure well and was transferred to the PACU in stable condition. All counts were complete and correct at the end of the case. JULIANA / KASI /[id number]
[2020-07-04] MEDS ORDERED: Ketorolac 30 MG/ML SDV IVPUSH PRN (23:00)
[2020-07-05] MEDS: oxyCODONE 5 MG Tab PO PRN ×2 (04:18→08:38)
--- NOTE | 2020-07-05 07:07 | PCM48HPAN ---
Post Anesthesia Note - EVALUATION WITHIN 48HRS OF ANESTHETIC Vital Signs in Normal Range: Yes Patient Participated in Evaluation: Yes Respiratory Function Stable: Yes Airway Patent: Yes Cardiovascular Function Stable: Yes Hydration Status Stable: Yes Pain Control Satisfactory: Yes Nausea and Vomiting Control Satisfactory: Yes Mental Status Recovered: Yes Vital Signs: Last Vital Signs Temp 36.3 C 07/05/20 04:23 Pulse 58 L 07/05/20 04:23 Resp 16 07/05/20 04:23 BP 118/57 L 07/05/20 04:23 Pulse Ox 95 07/05/20 04:23 - COMMENTS/OBSERVATIONS Free Text/Narrative:: Awake watching tv. Denies any complaints.
[2020-07-05 09:32] VITALS: BP 125/56; PULSE 64
--- NOTE | 2020-07-05 10:30 | PCM.SURGPN ---
- General Info Date of Service: 07/04/20 Date of Surgery/Procedure: 07/05/20 POD#: 1 Functional Status: Reports: Pain Controlled, Tolerating Diet, Ambulating, Urinating. Denies: New Symptoms - Review of Systems General: Reports: No Symptoms HEENT: Reports: No Symptoms Pulmonary: Reports: No Symptoms Cardiovascular: Reports: No Symptoms Gastrointestinal: Reports: No Symptoms. Denies: Flatus Genitourinary: Reports: No Symptoms Musculoskeletal: Reports: No Symptoms - Patient Data Vitals - Most Recent: Last Vital Signs Temp 37.9 C 07/05/20 08:00 Pulse 64 07/05/20 08:00 Resp 16 07/05/20 08:00 BP 125/56 L 07/05/20 08:00 Pulse Ox 96 07/05/20 08:00 Weight - Most Recent: 68.039 kg I&O - Last 24 Hours: Intake & Output 07/04/20 07/05/20 07/05/20 22:59 06:59 14:59 Intake Total 3300 Output Total 800 Balance 2500 Lab Results Last 24 Hrs: Laboratory Results - last 24 hr 07/04/20 07/04/20 07/04/20 Range/Units 10:10 12:25 14:24 Sodium 136 (136-148) mmol/L Potassium 3.8 (3.5-5.1) mmol/L Chloride 99 (98-107) mmol/L Carbon Dioxide 26.4 (21.0-32.0) mmol/L BUN 14 (7.0-18.0) mg/dL Creatinine 0.9 (0.8-1.3) mg/dL Est Cr Clr Drug Dosing 126.00 mL/min Estimated GFR (MDRD) > 60.0 ml/min Glucose 100 (74-106) mg/dL Calcium 9.5 (8.5-10.1) mg/dL Total Bilirubin 1.3 H (0.2-1.0) mg/dL AST 38 H (15-37) IU/L ALT 33 (14-63) IU/L Alkaline Phosphatase 75 (46-116) U/L Total Protein 8.4 H (6.4-8.2) g/dL Albumin 5.4 H (3.4-5.0) g/dL Globulin 3.0 (2.6-4.0) g/dL Albumin/Globulin Ratio 1.8 H (0.9-1.6) Lipase 48 L (73-393) U/L Urine Color YELLOW Urine Appearance CLEAR Urine pH 6.0 (5.0-8.0) Ur Specific [place] 1.025 (1.001-1.035) Urine Protein NEGATIVE (NEGATIVE) mg/dL Urine Glucose (UA) NEGATIVE (NEGATIVE) mg/dL Urine Ketones >=80 (NEGATIVE) mg/dL Urine Occult Blood NEGATIVE (NEGATIVE) Urine Nitrite NEGATIVE (NEGATIVE) Urine Bilirubin NEGATIVE (NEGATIVE) Urine Urobilinogen 1.0 (<2.0) EU/dL Ur Leukocyte Esterase TRACE H (NEGATIVE) Urine RBC 0-2 (0-2/HPF) Urine WBC 3-6 (0-5/HPF) Ur Epithelial Cells FEW (NONE-FEW) Urine Bacteria RARE (NEGATIVE) SARS-CoV-2 RNA (TOMI) NEGATIVE (NEGATIVE) Med Orders - Current: Current Medications Diphenhydramine HCl (Benadryl) 50 mg PO Q4H PRN PRN Reason: Itching Hydromorphone HCl (Dilaudid) 0.5 mg IVPUSH Q1H PRN PRN Reason: Pain (severe 7-10) Lactated Ringer's (Ringers, Lactated) 1,000 mls @ 125 mls/hr IV ASDIRECTED MENDEZ Last Admin: 07/04/20 15:00 Dose: 125 mls/hr Documented by: Ketorolac Tromethamine (Toradol) 30 mg IVPUSH Q6H PRN PRN Reason: Pain Stop: 07/09/20 17:29 Ondansetron HCl (Zofran) 4 mg IVPUSH Q6H PRN PRN Reason: Nausea/Vomiting Last Admin: 07/04/20 21:52 Dose: 4 mg Documented by: Oxycodone HCl (Oxycodone) 10 mg PO Q4H PRN PRN Reason: Pain Last Admin: 07/05/20 08:38 Dose: 10 mg Documented by: Sodium Chloride (Saline Flush) 10 ml FLUSH ASDIRECTED PRN PRN Reason: Keep Vein Open Last Admin: 07/04/20 10:13 Dose: 10 ml Documented by: Sodium Chloride (Saline Flush) 2.5 ml FLUSH ASDIRECTED PRN PRN Reason: Keep Vein Open Last Admin: 07/04/20 10:13 Dose: 2.5 ml Documented by: Discontinued Medications Bupivacaine HCl (Sensorcaine-Mpf 0.5%) Confirm Administered Dose 20 ml .ROUTE .STK-MED ONE Stop: 07/04/20 14:42 Dexamethasone (Dexamethasone) Confirm Administered Dose 20 mg .ROUTE .STK-MED ONE Stop: 07/04/20 14:21 Famotidine (Pepcid) 20 mg IVPUSH ONETIME ONE Stop: 07/04/20 09:55 Last Admin: 07/04/20 10:05 Dose: 20 mg Documented by: Fentanyl (Sublimaze) Confirm Administered Dose 250 mcg .ROUTE .STK-MED ONE Stop: 07/04/20 14:19 Fentanyl (Sublimaze) 50 mcg IVPUSH Q5M PRN PRN Reason: Pain (severe 7-10) Stop: 07/04/20 19:00 Glycopyrrolate (Robinul) Confirm Administered Dose 0.4 mg .ROUTE .STK-MED ONE Stop: 07/04/20 14:35 Sodium Chloride (Normal Saline) 1,000 mls @ 999 mls/hr IV .Bolus ONE Stop: 07/04/20 10:54 Last Admin: 07/04/20 10:04 Dose: 999 mls/hr Documented by: Piperacillin Sod/Tazobactam (Sod 3.375 gm/ Sodium Chloride) 50 mls @ 100 mls/hr IV ONETIME ONE Stop: 07/04/20 13:58 Last Admin: 07/04/20 13:45 Dose: 100 mls/hr Documented by: Acetaminophen (Ofirmev) Confirm Administered Dose 100 mls @ as directed .ROUTE .STK-MED ONE Stop: 07/04/20 17:30 Iopamidol (Isovue Multipack-370 (76%)) 80 ml IVPUSH ONETIME STA Stop: 07/04/20 13:17 Last Admin: 07/04/20 13:17 Dose: 80 ml Documented by: Ketorolac Tromethamine (Toradol) Confirm Administered Dose 30 mg .ROUTE .STK-MED ONE Stop: 07/04/20 17:16 Lidocaine HCl (Xylocaine-Mpf 1%) Confirm Administered Dose 5 ml .ROUTE .STK-MED ONE Stop: 07/04/20 14:21 Midazolam HCl (Versed 1 Mg/Ml) Confirm Administered Dose 2 mg .ROUTE .STK-MED ONE Stop: 07/04/20 14:19 Morphine Sulfate (Morphine) 4 mg IVPUSH ONETIME ONE Stop: 07/04/20 09:55 Last Admin: 07/04/20 10:13 Dose: 4 mg Documented by: Morphine Sulfate (Morphine) 4 mg IVPUSH ONETIME ONE Stop: 07/04/20 13:34 Last Admin: 07/04/20 13:45 Dose: 4 mg Documented by: Octyl Cyanoacrylate (Dermabond Advance) Confirm Administered Dose 1 applic .ROUTE .STK-MED ONE Stop: 07/04/20 17:04 Ondansetron HCl (Zofran) 4 mg IVPUSH ONETIME ONE Stop: 07/04/20 09:55 Last Admin: 07/04/20 10:04 Dose: 4 mg Documented by: Ondansetron HCl (Zofran) Confirm Administered Dose 4 mg .ROUTE .STK-MED ONE Stop: 07/04/20 14:21 Propofol (Diprivan 20 Ml) Confirm Administered Dose 200 mg .ROUTE .STK-MED ONE Stop: 07/04/20 14:19 Rocuronium [place] (Rocuronium [place]) Confirm Administered Dose 50 mg .ROUTE .STK-MED ONE Stop: 07/04/20 14:35 - Exam Wound/Incisions: Healing Well, Dressing Dry and Intact General: Alert, Oriented HEENT: Pupils Equal, Pupils Reactive Lungs: Normal Respiratory Effort Cardiovascular: Regular Rate GI/Abdominal Exam: Soft, Non-Tender, No Distention, No Mass Skin: Warm, Dry, Intact Psy/Mental Status: Alert, Normal Affect, Normal Mood Sepsis Event Note - Evaluation Sepsis Screening Result: No Definite Risk - Focused Exam Vital Signs: Vital Signs Temp Pulse Resp BP Pulse Ox 07/05/20 08:00 37.9 C 64 16 125/56 L 96 07/05/20 04:23 36.3 C 58 L 16 118/57 L 95 07/04/20 23:48 36.4 C 73 17 115/59 L 95 - Problem List & Annotations (1) Appendicitis SNOMED Code(s): 56685918 Code(s): K37 - UNSPECIFIED APPENDICITIS Status: Acute Current Visit: Yes Qualifiers: Appendicitis type: acute appendicitis Acute appendicitis type: unspecified acute appendicitis type Qualified Code(s): K35.80 - Unspecified acute appendicitis - Problem List Review Problem List Initiated/Reviewed/Updated: Yes - My Orders Last 24 Hours: Active Orders 24 hr Category Date Time Status Admission Status [Patient Status] [ADT] Routine ADT 07/04/20 14:00 Active Communication Order [RC] ROUTINE Care 07/04/20 17:30 Active Oxygen Therapy [RC] PRN Care 07/04/20 17:28 Active RT Incentive Spirometry [RC] Q1HWA Care 07/04/20 17:28 Active Ready for Discharge [RC] PER UNIT ROUTINE Care 07/05/20 08:19 Active Up ad Christine [RC] ASDIRECTED Care 07/04/20 17:28 Active Regular Diet [DIET] Diet 07/04/20 Dinner Active HYDROmorphone [Dilaudid] Med 07/04/20 17:28 Active 0.5 mg IVPUSH Q1H PRN Ketorolac [Toradol] Med 07/04/20 23:00 Active 30 mg IVPUSH Q6H PRN Lactated Ringers [Ringers, Lactated] 1,000 ml Med 07/04/20 14:45 Active IV ASDIRECTED Ondansetron [Zofran] Med 07/04/20 17:28 Active 4 mg IVPUSH Q6H PRN Sodium Chloride 0.9% [Saline Flush] Med 07/04/20 09:54 Active 10 ml FLUSH ASDIRECTED PRN Sodium Chloride 0.9% [Saline Flush] Med 07/04/20 09:54 Active 2.5 ml FLUSH ASDIRECTED PRN diphenhydrAMINE [Benadryl] Med 07/04/20 17:28 Active 50 mg PO Q4H PRN oxyCODONE Med 07/04/20 17:29 Active 10 mg PO Q4H PRN Saline Lock Insert [OM.PC] Stat Oth 07/04/20 09:54 Ordered Resuscitation Status Routine Resus Stat 07/04/20 17:28 Ordered Medication Orders Diphenhydramine HCl (Benadryl) 50 mg PO Q4H PRN PRN Reason: Itching Hydromorphone HCl (Dilaudid) 0.5 mg IVPUSH Q1H PRN PRN Reason: Pain (severe 7-10) Lactated Ringer's (Ringers, Lactated) 1,000 mls @ 125 mls/hr IV ASDIRECTED MENDEZ Last Admin: 07/04/20 15:00 Dose: 125 mls/hr Documented by: ELI Ketorolac Tromethamine (Toradol) 30 mg IVPUSH Q6H PRN PRN Reason: Pain Stop: 07/09/20 17:29 Ondansetron HCl (Zofran) 4 mg IVPUSH Q6H PRN PRN Reason: Nausea/Vomiting Last Admin: 07/04/20 21:52 Dose: 4 mg Documented by: CATHLEEN Oxycodone HCl (Oxycodone) 10 mg PO Q4H PRN PRN Reason: Pain Last Admin: 07/05/20 08:38 Dose: 10 mg Documented by: Admin: 07/05/20 04:18 Dose: 10 mg Documented by: CATHLEEN Sodium Chloride (Saline Flush) 10 ml FLUSH ASDIRECTED PRN PRN Reason: Keep Vein Open Last Admin: 07/04/20 10:13 Dose: 10 ml Documented by: BRITTNI Sodium Chloride (Saline Flush) 2.5 ml FLUSH ASDIRECTED PRN PRN Reason: Keep Vein Open Last Admin: 07/04/20 10:13 Dose: 2.5 ml Documented by: BRITTNI - Plan Plan (Free Text/Narrative):: The patient appears comfortable this morning. He only used 1 dose of pain medication overnight. His vital signs remained stable. He is tolerating a regular diet. He is urinating. He has not passed flatus yet but does not feel bloated and uncomfortable. We discussed all of the discharge instructions. I called his mother and let her know these instructions as well. Patient is doing well and can be discharged home with follow-up in 2 weeks.
--- NOTE | 2020-07-05 12:49 | US ---
INDICATION: Testicular pain, clinical concern of torsion versus epididymitis TECHNIQUE: Ultrasound of the scrotum and contents. Sonographic imna-scale images were obtained with spectral and color Doppler waveform and spectral waveform analysis of the testicles. COMPARISON: None FINDINGS: Right testicle: 4.9 x 2.0 x 3.0 cm. Normal echotexture. No masses. No suspicious calcifications. Normal arterial and venous and blood flow using Doppler and spectral waveform analysis. Left testicle: 4.9 x 2.3 x 2.9 cm. Normal echotexture. No masses. No suspicious calcifications. Normal arterial and venous and blood flow using Doppler and spectral waveform analysis. Epididymis: There is a 0.3 cm cyst on the left epididymis. Normal blood flow. Other: There is a left-sided varicocele. No sign of hydrocele. No sign of varicocele. Scrotal wall is normal. IMPRESSION: No intratesticular mass, torsion, or evidence for epididymitis. Left varicocele. Tiny cyst on the left epididymis. Dictated by Ama Scott MD @ Jul 04 2020 12:06PM Signed by Dr. Ama Scott @ Jul 04 2020 12:06PM [facility]
== END 2020-07-05 08:45 | disposition home or self-care (01) ==
LOC: MW.ED 09:29 → MW.SDS 13:42 → MW.MS 18:11 → MW.SDS 07-05 08:45
PROVIDERS: ATTEND Surgery
DX: K35.80 Unspecified acute appendicitis (principal); F32.9 Major depressive disorder, single episode, unspecified; Z98.890 Other specified postprocedural states; Z01.812 Encounter for preprocedural laboratory examination; Z20.828 Contact with and (suspected) exposure to other viral communicable diseases; Z79.899 Other long term (current) drug therapy
CPT/HCPCS: 44970; 74177; 76870; 80053; 81001; 83605; 83690; 85025; 87635; 88304; 93976; 96361; 96374; 96375; 99285; A9270; J0131; J0330; J1100; J2001; J2250; J2270; J2405; J2543; J2704; J3010; J3490; J7030; J7050; J7120; Q9967; 00840; 99283; J1885; U0002

== ENCOUNTER 2021-01-28 00:15 | Emergency (ER) | payer OTHER ==
[2021-01-28] MEDS ORDERED: cefTRIAXone 500 MG in Lidocaine 1% 1 ML IM ONE (01:01)
[2021-01-28] MEDS ORDERED: Doxycycline 100 MG Cap PO ONE (01:02)
[2021-01-28] MEDS ORDERED: metroNIDAZOLE 250 MG Tab PO ONE (01:03)
--- NOTE | 2021-01-28 01:07 | EDM.PDOC ---
ED HPI GENERAL MEDICAL PROBLEM - General Chief Complaint: General Stated Complaint: STD TEST Time Seen by Provider: 01/28/21 00:35 - History of Present Illness INITIAL COMMENTS - FREE TEXT/NARRATIVE: CHIEF COMPLAINT(S): STD HISTORY OF PRESENT ILLNESS: This is a 20-year-old male without any significant past medical history who comes to the emergency department with a chief complaint of STD. The patient states that approximately 1-1/2 months ago his girlfriend was diagnosed with chlamydia. He states that since that time he has had unprotected course with her and is concerned that he may also have chlamydia. He denies any penile discharge, pain with defecation but states that he does intermittently have testicular pain. He states that the testicular pain has Been going on for quite some time and when he was having surgery for appendicitis they did do a scrotal ultrasound at that time and told him that he had benign cyst. He states that he has not had any increase in that pain and denies any injury to his testicles. He states that he was coming out of precaution because his girlfriend had told him. He denies any other symptoms. REVIEW OF SYSTEMS: Constitutional: Denies fever, chills. Genitourinary: Positive for testicular pain. Denies hematuria, dysuria, penile discharge PAST MEDICAL HISTORY: As per history of present illness and as reviewed below otherwise noncontributory. SURGICAL HISTORY: As per history of present illness and as reviewed below otherwise noncontributory. SOCIAL HISTORY: As per history of present illness and as reviewed below otherwise noncontributory. FAMILY HISTORY: As per history of present illness and as reviewed below otherwise noncontributory. EXAMINATION OF ORGAN SYSTEMS/BODY AREAS: Constitutional: Blood pressure is 128/75, heart rate 81, respiratory rate 18 with an oxygen saturation 97% on room air. Temperature 36.4 General: Overall well-appearing young man who is in no acute distress Cardiovascular: Regular, rate, and rhythm. No gallops, murmurs, or rubs. Bilateral upper extremity pulses symmetric and intact. No peripheral edema. No JVD. Mild tenderness to palpation along the ribs near the sternum, no overlying skin changes Genitourinary: No suprapubic tenderness the patient has normal male external genitalia. Bilateral testicles are descended. No inguinal hernia noted. No discharge from the tip of the penis. No transverse lie of the testicle. Positive cremasteric reflex. There is no epididymal or testicular tenderness to palpation. No swelling of the testicle. No erythema of the skin of the scrotum. Skin: No lesions or abrasions. MEDICAL DECISION MAKING AND COURSE IN THE ED WITH INTERPRETATION/REVIEW OF DIAGNOSTIC STUDIES: This is a 20-year-old 9 without any significant past medical history who comes to the emergency department with intermittent testicular pain that precedes the patient's finding out of his girlfriend testing positive for chlamydia. At this time the patient's examination is normal. At this time I do not believe sending any studies as needed as the patient's girlfriend did test positive for chlamydia. We will treat the patient for STD. I did discuss with him at this time that he needed to refrain from sexual intercourse for 14 days and that no repeat testing is needed. I discussed that if his girlfriend has had intercourse after being treated for STDs that I do recommend she get retr eated. In addition I did discuss that he should continue to use barrier protection to prevent this in the future. He was amenable to this plan. I provided the patient with 500 mg of IM ceftriaxone, doxycycline, and Flagyl. I sent a prescription for doxycycline to his pharmacy. He is to return for any new or worsening symptoms. He was amenable to discharge at this time and had no further questions. DISPOSITION: The patient was discharged home in stable condition. The patient will follow up with primary care physician within 1 week CONDITION: Good PROCEDURES: None FINAL IMPRESSION(S)/DIAGNOSES: 1. Acute encounter for sexually transmitted infection Diego Peace M.D. - Related Data Allergies Allergy/AdvReac Type Severity Reaction Status Date / Time No Known Allergies Allergy Verified 01/28/21 00:29 Home Meds: Home Meds Dextroamphetamine/Amphetamine [Adderall 20 mg Tablet] 20 mg PO DAILY 01/28/21 [History] Doxycycline [Vibramycin] 100 mg PO BID #19 tab 01/28/21 [Rx] FLUoxetine HCl [Fluoxetine] 10 mg PO DAILY 01/28/21 [History] Past Medical History - Past Health History Medical/Surgical History: Denies Medical/Surgical History Cardiovascular History: Reports: None Respiratory History: Reports: None Gastrointestinal History: Reports: None Genitourinary History: Reports: None Musculoskeletal History: Reports: None Neurological History: Reports: None Psychiatric History: Reports: ADD, Depression Endocrine/Metabolic History: Reports: None Insulin Pump Model and Spreader Box Operator: None Hematologic History: Reports: None Immunologic History: Reports: None Oncologic (Cancer) History: Reports: None Dermatologic History: Reports: None - Infectious Disease History Infectious Disease History: Reports: None - Past Surgical History Head Surgeries/Procedures: Reports: None HEENT Surgical History: Reports: Adenoidectomy, Oral Surgery, Tonsillectomy GI Surgical History: Reports: Appendectomy Social & Family History - Family History Family Medical History: No Pertinent Family History - Caffeine Use Caffeine Use: Reports: Energy Drinks, Soda - Recreational Drug Use Recreational Drug Use: Yes Drug Use in Last 12 Months: Yes Recreational Drug Type: Reports: Marijuana/Hashish ED ROS GENERAL - Review of Systems Review Of Systems: See Below ED EXAM, GENERAL - Physical Exam Exam: See Below Course - Vital Signs Last Recorded V/S: Last Vital Signs Temp 36.2 C 01/28/21 01:30 Pulse 78 01/28/21 01:30 Resp 18 01/28/21 01:30 BP 110/70 01/28/21 01:30 Pulse Ox 97 01/28/21 01:30 - Orders/Labs/Meds Meds: Medications Discontinued Medications Generic Name Dose Route Start Last Admin Trade Name Regina PRN Reason Stop Dose Admin Doxycycline Hyclate 100 mg 01/28/21 01:02 01/28/21 01:12 Doxycycline 100 Mg Cap PO 01/28/21 01:03 100 mg ONETIME ONE Administration Ceftriaxone Sodium 500 mg/ 1 mls @ 1 mls/sec 01/28/21 01:01 01/28/21 01:13 Lidocaine HCl IM 01/28/21 01:02 1 mls/sec ONETIME ONE Administration Metronidazole 2,000 mg 01/28/21 01:03 01/28/21 01:12 Metronidazole 250 Mg Tab PO 01/28/21 01:04 2,000 mg NOW ONE Administration Departure - Departure Time of Disposition: 01:05 Disposition: Home, Self-Care 01 Condition: Fair Clinical Impression: STD (male) - Discharge Information Prescriptions: Doxycycline [Vibramycin] 100 mg PO BID #19 tab Instructions: Chlamydia, Male, Gonorrhea Referrals: PCP,None [Primary Care Provider] - Forms: ED Department Discharge Additional Instructions: We were evaluated today on an emergent basis. At this time given the exposure to chlamydia we did decide just to treat you. At this time I did send a prescription for doxycycline which needs to be taken twice a day until all antibiotics are gone. For the muscle pain in your chest I recommend Tylenol and Motrin for pain relief. Please use this for the next 48 hours and then as needed afterwards. If you have any new or worsening symptoms such as testicular pain, pain when you have a bowel movement, or worsening penile discharge please return to the emergency department. Please use: Tylenol 500-1000mg every 6 hours (DO NOT TAKE MORE THAN 4000mg in 1 day) Ibuprofen 400mg every 6 hours (Take with food as it can cause ulcers, GI upset) Example schedule: 8:00 AM (Tylenol 500-1000mg) 11:00 AM (Ibuprofen 400mg) 2:00 PM (Tylenol 500-1000mg) 5:00 PM (Ibuprofen 400mg) Ice the area 20 minutes 4 times per day [facility] [address] [place] [address] [place] [address] The patient is informed of any results of their evaluation and diagnostic workup and all questions are answered. They are given discharge instructions and return precautions. The patient is stable for discharge. The patient states they understand and agree with the plan and that they will return if their symptoms get worse or if they have any new concerns. The following information is given to patients seen in the emergency department who are being discharged to home. This information is to outline your options for follow-up care. We provide all patients seen in our emergency department with a follow-up referral. The need for follow-up, as well as the timing and circumstances, are variable depending upon the specifics of your emergency department visit. If you don't have a primary care physician on staff, we will provide you with a referral. We always advise you to contact your personal physician following an emergency department visit to inform them of the circumstance of the visit and for follow-up with them and/or the need for any referrals to a consulting specialist. The emergency department will also refer you to a specialist when appropriate. This referral assures that you have the opportunity for follow-up care with a specialist. All of these measure are taken in an effort to provide you with optimal care, which includes your follow-up. Under all circumstances we always encourage you to contact your private physician who remains a resource for coordinating your care. When calling for follow-up care, please make the office aware that this follow-up is from your recent emergency room visit. If for any reason you are refused follow-up, please contact the [facility] Emergency Department at and asked to speak to the emergency department charge nurse. Sepsis Event Note (ED) - Evaluation Sepsis Screening Result: No Definite Risk - Focused Exam Vital Signs: Vital Signs Temp Pulse Resp BP Pulse Ox 01/28/21 01:30 36.2 C 78 18 110/70 97 01/28/21 00:30 36.4 C 81 18 128/75 97
[2021-01-28 01:34] VITALS: BP 110/70; PULSE 78
== END 2021-01-28 01:30 | disposition home or self-care (01) ==
LOC: MW.ED 00:15
DX: Z11.3 Encounter for screening for infections with a predominantly sexual mode of transmission (principal)
CPT/HCPCS: 96372; 99283; A9270; J0696

== ENCOUNTER 2021-02-01 01:55 | Emergency (ER) | payer OTHER ==
--- NOTE | 2021-02-01 02:40 | EDM.PDOC ---
ED HPI GENERAL MEDICAL PROBLEM - General Chief Complaint: Upper Extremity Injury/Pain Stated Complaint: RIGHT HAND BROKEN Time Seen by Provider: 02/01/21 02:32 - History of Present Illness INITIAL COMMENTS - FREE TEXT/NARRATIVE: HISTORY AND PHYSICAL: History of present illness: This is a 20-year-old gentleman who presents ER today secondary to pain to his right hand after punching a metal mailbox approximately 1/2 hours prior to arrival. Patient reports pain is greatest over his middle and fourth MCPs. Patient denies any prior trauma. Patient denies other symptomatology. Patient denies any bleeding or open injuries. Review of systems: As per history of present illness and below otherwise all systems reviewed and negative. Past medical history: As per history of present illness and as reviewed below otherwise n oncontributory. Surgical history: As per history of present illness and as reviewed below otherwise noncontributory. Social history: No reported history of drug or alcohol abuse. Family history: As per history of present illness and as reviewed below otherwise noncontributory. Physical exam: This patient was seen and evaluated during the 2019 SARS-CoV-2 novel coronavirus pandemic period. Community viral transmission is ongoing at time of this encounter and the emergency department is operating under pandemic response procedures. Constitutional: Patient is oriented to person, place, and time. Appears well- developed and well-nourished. No distress. HEENT: Moist mucous membranes Head: Normocephalic and atraumatic Eyes: Right eye exhibits no discharge. Left eye exhibits no discharge. No scleral icterus Neck: Normal range of motion. No tracheal deviation present. Cardiovascular: Normal rate and regular rhythm. Pulmonary: Effort normal, no respiratory distress. Abdominal: No distention Musculoskeletal: Normal range of motion Neurologic: Alert and oriented to person, place and time. Skin: [place], warm and dry. Psychiatric: Normal mood and affect. Behavior is normal. Judgment and thought content normal. Nursing note and vital signs have been reviewed Patient's ER physical exam is significant for tenderness to palpation to his second third and fourth metacarpals with pain greatest over the third metacarpal. Patient has no evidence of open wounds. Patient with mild soft tissue swelling. Diagnostics: Right hand x-ray reveals a nondisplaced, nonangulated, nonshortened fracture of the proximal third metacarpal. Fracture appears to be not intra-articular. Therapeutics: Volar splint to right hand. DME note: A right volar splint will be applied secondary to a fracture to his right proximal third metacarpal. This will assist with immobilization of the fracture to assist with healing. Patient will need to have splint placed for 4 weeks or until reevaluated by orthopedics. Assessment and plan: 20-year-old gentleman with a fracture of his third metacarpal that is nondisplaced, nonangulated and not intra-articular. Patient was placed in a volar wrist splint and will be given adequate analgesia. Patient be referred for orthopedic evaluation for likely cast placement. Reassessment at the time of disposition demonstrates that the patient is in no acute distress. The patient has remained stable throughout the entire ED visit and is without objective evidence for acute process requiring urgent intervention or hospitalization. The patient is stable for discharge, counseling is provided as documented above, discussed symptomatic treatment and specific conditions for return. I have spoken with the patient/caregiver and discussed todays findings, in addition to providing specific details for the plan of care. Questions are answered and there is agreement with the plan. Definitive disposition and diagnosis as appropriate pending reevaluation and review of above. Right Hand Pain Score (Numeric/FACES): 9 - Related Data Allergies Allergy/AdvReac Type Severity Reaction Status Date / Time No Known Allergies Allergy Verified 02/01/21 02:03 Home Meds: Home Meds Dextroamphetamine/Amphetamine [Adderall 20 mg Tablet] 20 mg PO DAILY 01/28/21 [History] Doxycycline [Vibramycin] 100 mg PO BID #19 tab 01/28/21 [Rx] FLUoxetine HCl [Fluoxetine] 10 mg PO DAILY 01/28/21 [History] Ibuprofen 600 mg PO Q6HR PRN #30 tablet 02/01/21 [Rx] Past Medical History - Past Health History Medical/Surgical History: Denies Medical/Surgical History HEENT History: Reports: None Cardiovascular History: Reports: None Respiratory History: Reports: None Gastrointestinal History: Reports: None Genitourinary History: Reports: None Musculoskeletal History: Reports: None Neurological History: Reports: None Psychiatric History: Reports: ADD, Depression Endocrine/Metabolic History: Reports: None Insulin Pump Model and Roll Sheeting Cutter: None Hematologic History: Reports: None Immunologic History: Reports: None Oncologic (Cancer) History: Reports: None Dermatologic History: Reports: None - Infectious Disease History Infectious Disease History: Reports: None - Past Surgical History Head Surgeries/Procedures: Reports: None HEENT Surgical History: Reports: Adenoidectomy, Oral Surgery, Tonsillectomy GI Surgical History: Reports: Appendectomy Social & Family History - Family History Family Medical History: No Pertinent Family History - Caffeine Use Caffeine Use: Reports: Energy Drinks - Recreational Drug Use Recreational Drug Use: Yes Drug Use in Last 12 Months: Yes Recreational Drug Type: Reports: Marijuana/Hashish Review of Systems - Review of Systems Review Of Systems: See Below ED EXAM, GENERAL - Physical Exam Exam: See Below Course - Vital Signs Last Recorded V/S: Last Vital Signs Temp 98.2 F 02/01/21 02:05 Pulse 95 02/01/21 02:05 Resp 18 02/01/21 02:05 BP 140/77 02/01/21 02:05 Pulse Ox 96 02/01/21 02:05 - Orders/Labs/Meds Orders: Active Orders 24 hr Category Date Time Status Hand Comp Min 3V Rt [CR] Stat Exams 02/01/21 02:07 Taken Departure - Departure Time of Disposition: 02:40 Disposition: Home, Self-Care 01 Condition: Good Clinical Impression: Fracture of metacarpal bone Qualifiers: Encounter type: initial encounter Metacarpal bone: third Fracture type: closed Metacarpal location: base Fracture alignment: nondisplaced Laterality: right Qualified Code(s): S62.342A - Nondisplaced fracture of base of third metacarpal bone, right hand, initial encounter for closed fracture - Discharge Information Instructions: Cast or Splint Care, Adult, [id number], Metacarpal Fracture, [id number] Referrals: PCP,None [Primary Care Provider] - Additional Instructions: You have been seen and evaluated ER today secondary to injury to your right hand . It appears that you have a fracture of your right third metacarpal bone. This is the bone in your hand that is connected to your middle finger. You will be placed in a splint to assist with immobilization and healing. You were given the phone number for orthopedic clinic to call in the morning for follow-up appointment. You were given ibuprofen to assist with pain discomfort. Please keep it elevated and utilize ice to help decrease the swelling. [facility] - Orthopedic Clinic Professional Building [address] [place] [address], [address] [place] [address] The following information is given to patients seen in the emergency department who are being discharged to home. This information is to outline your options for follow-up care. We provide all patients seen in our emergency department with a follow-up referral. The need for follow-up, as well as the timing and circumstances, are variable depending upon the specifics of your emergency department visit. If you don't have a primary care physician on staff, we will provide you with a referral. We always advise you to contact your personal physician following an emergency department visit to inform them of the circumstance of the visit and for follow-up with them and/or the need for any referrals to a consulting specialist. The emergency department will also refer you to a specialist when appropriate. This referral assures that you have the opportunity for follow-up care with a specialist. All of these measure are taken in an effort to provide you with optimal care, which includes your follow-up. Under all circumstances we always encourage you to contact your private physician who remains a resource for coordinating your care. When calling for follow-up care, please make the office aware that this follow-up is from your recent emergency room visit. If for any reason you are refused follow-up, please contact the [facility] Emergency Department at and asked to speak to the emergency department charge nurse. [facility] [address] [place] [address] [place] [address] Sepsis Event Note (ED) - Evaluation Sepsis Screening Result: No Definite Risk - Focused Exam Vital Signs: Vital Signs Temp Pulse Resp BP Pulse Ox 02/01/21 02:05 98.2 F 95 18 140/77 96 - My Orders Last 24 Hours: My Active Orders 02/01/21 02:07 Hand Comp Min 3V Rt [CR] Stat - Assessment/Plan Last 24 Hours: My Active Orders 02/01/21 02:07 Hand Comp Min 3V Rt [CR] Stat
[2021-02-01] MEDS ORDERED: Ibuprofen 600 MG Tab PO ONE (02:42)
--- NOTE | 2021-02-01 03:03 | CR ---
Indication: Pain after punching mailbox Technique: Three views right hand Comparison: None Findings/impression: Mildly displaced, comminuted, possibly intra-articular fracture of the proximal metaphysis of the 3rd metacarpal. Mild soft tissue swelling along the dorsum of the hand. Remainder of the osseous structures are intact. Dictated by Ama Scott MD @ 02/01/2021 3:03:[address] Ama Scott @ Feb 01 2021 3:03AM
[2021-02-01 03:17] VITALS: BP 135/69; PULSE 92
== END 2021-02-01 03:15 | disposition home or self-care (01) ==
LOC: MW.ED 01:55
DX: S62.342A Nondisplaced fracture of base of third metacarpal bone, right hand, initial encounter for closed fracture (principal); W22.8XXA Striking against or struck by other objects, initial encounter
CPT/HCPCS: 29125; 73130; 99283; A9270

== ENCOUNTER 2021-03-25 22:16 | Emergency (ER) | payer OTHER ==
[2021-03-25 22:48] VITALS: BP 112/58; PULSE 81
--- NOTE | 2021-03-25 23:03 | EDM.PDOC ---
ED HPI GENERAL MEDICAL PROBLEM - General Chief Complaint: Upper Extremity Injury/Pain Stated Complaint: RT HAND INJURY Time Seen by Provider: 03/25/21 22:42 - History of Present Illness INITIAL COMMENTS - FREE TEXT/NARRATIVE: History of present illness: [] Patient fracture to third metacarpal 02/01/2021. He had it healed splint removed. He followed up with a hand surgeon in my not. The patient now has pain after overuse at work. The patient has no new trauma. Review of systems: As per history of present illness and below otherwise all systems reviewed and negative. Past medical history: As per history of present illness and as reviewed below otherwise noncontributory. Surgical history: As per history of present illness and as reviewed below otherwise noncontributory. Social history: No reported history of drug or alcohol abuse. Family history: As per history of present illness and as reviewed below otherwise noncontributory. Physical exam: Constitutional - well developed, well-nourished and in no acute distress HEENT - normocephalic, no evidence of trauma - external nose and mouth normal - no mass in neck and no JVD - mucosae moist EYES - full EOM, PERRL, no icterus - no evidence of inflammation, injection, or drainage Respiratory - no respiratory distress, equal bilateral expansion Musculoskeletal there is minimal swelling in the mid area of the metacarpal #3 of the right hand. There is no tenderness crepitation. Range of motion is normal. Strength is normal. No gross deformity of long bones or joints - no tenderness, swelling or edema Neurologic - Alert and oriented times four - CN II-XII grossly intact - motor sensory and coordination symmetrically normal Psychiatric - appropriate mood and affect with normal thought content Hematologic - No petechiae or purpura - mucosa appropriate color and sclera not pale - normal nail bed color and refill Integument - no rash or evidence of trauma - normal turgor Diagnostics: [] Therapeutics: [] Impression: [] Plan: [] Definitive disposition and diagnosis as appropriate pending reevaluation and review of above. - Related Data Allergies Allergy/AdvReac Type Severity Reaction Status Date / Time No Known Allergies Allergy Verified 03/25/21 22:43 Home Meds: Home Meds FLUoxetine HCl [Fluoxetine] 10 mg PO DAILY 01/28/21 [History] Dextroamphetamine/Amphetamine [Dextroamp-Amphetamin 10 mg Tab] 10 mg PO DAILY 03/25/21 [History] Past Medical History - Past Health History Medical/Surgical History: Denies Medical/Surgical History HEENT History: Reports: None Cardiovascular History: Reports: None Respiratory History: Reports: None Gastrointestinal History: Reports: None Genitourinary History: Reports: None Musculoskeletal History: Reports: None Neurological History: Reports: None Psychiatric History: Reports: ADD, Depression Endocrine/Metabolic History: Reports: None Insulin Pump Model and Meter Inspector: None Hematologic History: Reports: None Immunologic History: Reports: None Oncologic (Cancer) History: Reports: None Dermatologic History: Reports: None - Infectious Disease History Infectious Disease History: Reports: None - Past Surgical History Head Surgeries/Procedures: Reports: None HEENT Surgical History: Reports: Adenoidectomy, Oral Surgery, Tonsillectomy GI Surgical History: Reports: Appendectomy Social & Family History - Family History Family Medical History: No Pertinent Family History - Caffeine Use Caffeine Use: Reports: Energy Drinks - Recreational Drug Use Recreational Drug Use: Yes Drug Use in Last 12 Months: Yes Recreational Drug Type: Reports: Marijuana/Hashish Review of Systems - Review of Systems Review Of Systems: Comprehensive ROS is negative, except as noted in HPI. ED EXAM, GENERAL - Physical Exam Exam: See Below Free Text/Narrative:: My physical exam is in the HPI Course - Vital Signs Last Recorded V/S: Last Vital Signs Temp 36.1 C 03/25/21 22:46 Pulse 81 03/25/21 22:46 Resp 16 03/25/21 22:46 BP 112/58 L 03/25/21 22:46 Pulse Ox 97 03/25/21 22:46 - Orders/Labs/Meds Orders: Active Orders 24 hr Category Date Time Status DME for Discharge [COMM] Stat Oth 03/25/21 22:57 Ordered Departure - Departure Time of Disposition: 23:15 Disposition: Home, Self-Care 01 Condition: Good Clinical Impression: Arthritis of right hand, Fracture of metacarpal bone with routine healing - Discharge Information Instructions: Osteoarthritis, Cast or Splint Care, Adult, [id number] Referrals: Everton Quintana MD [Primary Care Provider] - Zoila Romo [Ordering Only Provider] - Additional Instructions: Heat and nonsteroidal anti-inflammatory medicine such as ibuprofen or naproxen are advised. [facility] - [facility] Clinic Professional Building [address] [facility], [address] [place] [address] [facility] - Primary Care [address] [place] [address] [facility] [address] [place] [id number] The following information is given to patients seen in the emergency department who are being discharged to home. This information is to outline your options for follow-up care. We provide all patients seen in our emergency department with a follow-up referral. The need for follow-up, as well as the timing and circumstances, are variable depending upon the specifics of your emergency department visit. If you don't have a primary care physician on staff, we will provide you with a referral. We always advise you to contact your personal physician following an emergency department visit to inform them of the circumstance of the visit and for follow-up with them and/or the need for any referrals to a consulting specialist. The emergency department will also refer you to a specialist when appropriate. This referral assures that you have the opportunity for follow-up care with a specialist. All of these measure are taken in an effort to provide you with opt imal care, which includes your follow-up. Under all circumstances we always encourage you to contact your private physician who remains a resource for coordinating your care. When calling for follow-up care, please make the office aware that this follow-up is from your recent emergency room visit. If for any reason you are refused follow-up, please contact the [facility] Emergency Department at and asked to speak to the emergency department charge nurse. Sepsis Event Note (ED) - Evaluation Sepsis Screening Result: No Definite Risk - Focused Exam Vital Signs: Vital Signs Temp Pulse Resp BP Pulse Ox 03/25/21 22:46 36.1 C 81 16 112/58 L 97 - My Orders Last 24 Hours: My Active Orders 03/25/21 22:57 DME for Discharge [COMM] Stat - Assessment/Plan Last 24 Hours: My Active Orders 03/25/21 22:57 DME for Discharge [COMM] Stat
== END 2021-03-25 23:19 | disposition home or self-care (01) ==
LOC: MW.ED 22:16
DX: S62.392D Other fracture of third metacarpal bone, right hand, subsequent encounter for fracture with routine healing (principal); M19.041 Primary osteoarthritis, right hand; X58.XXXA Exposure to other specified factors, initial encounter
CPT/HCPCS: 99283

== ENCOUNTER 2021-04-14 02:55 | Emergency (ER) | payer OTHER ==
[2021-04-14] MEDS ORDERED: Ondansetron 4 MG/2 ML SDV IVPUSH ONE (03:27)
[2021-04-14] MEDS ORDERED: Lactated Ringers 1,000 ML IV ONE (03:27)
--- NOTE | 2021-04-14 03:30 | EDM.PDOC ---
ED HPI GENERAL MEDICAL PROBLEM - General Chief Complaint: Drug or Alcohol Abuse Stated Complaint: ALCOHOL POISONING Time Seen by Provider: 04/14/21 03:19 Source of Information: Reports: Patient, Significant Other History Limitations: Reports: No Limitations - History of Present Illness INITIAL COMMENTS - FREE TEXT/NARRATIVE: 20-year-old male was brought in by friend for alcohol intoxication at a green party after drinking a lot of jungle juice. He has vomited 5 times. Denies any trauma or injuries or headache. ROS: A 10-point review of systems, other than pertinent positives and negatives as stated per HPI, is otherwise negative Past medical history: No additional pertinent history Past Surgical history: No additional pertinent history Social history: No additional pertinent history Family history: No additional pertinent history PHYSICAL EXAM General: Somnolent, no distress HEENT: dry mucous membrane Neck: supple, no meningismus, no Kernig or Brudzinski Cardiac: S1S2 RRR Respiratory: CTAB, no crackles or rales, no wheezing Abdomen: Soft, nontender, no rebound or guarding, nondistended, no pulsatile mass. Back: nontender Musculoskeletal: NVI distally, no deformity Neuro: No focal deficits stomach Pain Score (Numeric/FACES): 7 - Related Data Allergies Allergy/AdvReac Type Severity Reaction Status Date / Time No Known Allergies Allergy Verified 04/14/21 03:16 Home Meds: Home Meds . [No Known Home Meds] 04/14/21 [History] Past Medical History - Past Health History Medical/Surgical History: Denies Medical/Surgical History HEENT History: Reports: None Cardiovascular History: Reports: None Respiratory History: Reports: None Gastrointestinal History: Reports: None Genitourinary History: Reports: None Musculoskeletal History: Reports: None Neurological History: Reports: None Psychiatric History: Reports: ADD, Depression Endocrine/Metabolic History: Reports: None Insulin Pump Model and Seaming Inspector: None Hematologic History: Reports: None Immunologic History: Reports: None Oncologic (Cancer) History: Reports: None Dermatologic History: Reports: None - Infectious Disease History Infectious Disease History: Reports: None - Past Surgical History Head Surgeries/Procedures: Reports: None HEENT Surgical History: Reports: Adenoidectomy, Oral Surgery, Tonsillectomy GI Surgical History: Reports: Appendectomy Social & Family History - Family History Family Medical History: No Pertinent Family History - Caffeine Use Caffeine Use: Reports: Energy Drinks ED ROS GENERAL - Review of Systems Review Of Systems: See Below (see dictation) ED EXAM, GENERAL - Physical Exam Exam: See Below (see dictation) Course - Vital Signs Last Recorded V/S: Last Vital Signs Temp 95.6 F L 04/14/21 03:16 Pulse 70 04/14/21 03:16 Resp 18 04/14/21 03:16 BP 125/77 04/14/21 03:16 Pulse Ox 94 L 04/14/21 03:16 - Orders/Labs/Meds Orders: Active Orders 24 hr Category Date Time Status Lactated Ringers [Ringers, Lactated] 1,000 ml Med 04/14/21 03:27 Ordered IV .BOLUS Ondansetron [Zofran] Med 04/14/21 03:27 Once 4 mg IVPUSH ONETIME ONE Medication Orders Lactated Ringer's (Ringers, Lactated) 1,000 mls @ 999 mls/hr IV .BOLUS ONE Stop: 04/14/21 04:27 Ondansetron HCl (Ondansetron 4 Mg/2 Ml Sdv) 4 mg IVPUSH ONETIME ONE Stop: 04/14/21 03:28 Meds: Medications Generic Name Dose Route Start Last Admin Trade Name Regina PRN Reason Stop Dose Admin Lactated Ringer's 1,000 mls @ 999 mls/hr 04/14/21 03:27 Ringers, Lactated IV 04/14/21 04:27 .BOLUS ONE Ondansetron HCl 4 mg 04/14/21 03:27 Ondansetron 4 Mg/2 Ml Sdv IVPUSH 04/14/21 03:28 ONETIME ONE - Re-Assessments/Exams Free Text/Narrative Re-Assessment/Exam: 04/14/21 03:58 After IV fluids and Zofran in the ER, the patient improved and is currently stable for discharge. Significant other is sober and will drive him home. I advised the patient to return to the ER for reevaluation if symptoms worsened, i ncluding fever, worsening pain, or any other worrisome symptoms. I instructed the patient to follow up with their PCP within 2-3 days. Departure - Departure Time of Disposition: 03:29 Disposition: Home, Self-Care 01 Clinical Impression: Alcohol intoxication - Discharge Information *PRESCRIPTION DRUG MONITORING PROGRAM REVIEWED*: Not Applicable *COPY OF PRESCRIPTION DRUG MONITORING REPORT IN PATIENT MIRIAN: Not Applicable Instructions: Alcohol Intoxication Referrals: PCP,None [Primary Care Provider] - Additional Instructions: The need for follow-up, as well as the timing and circumstances, are variable depending upon the specifics of your emergency department visit. If you don't have a primary care physician on staff, we will provide you with a referral. We always advise you to contact your personal physician following an emergency department visit to inform them of the circumstance of the visit and for follow-up with them and/or the need for any referrals to a consulting specialist. The emergency department will also refer you to a specialist when appropriate. This referral assures that you have the opportunity for follow-up care with a specialist. All of these measure are taken in an effort to provide you with optimal care, which includes your follow-up. Under all circumstances we always encourage you to contact your private physician who remains a resource for coordinating your care. When calling for follow-up care, please make the office aware that this follow-up is from your recent emergency room visit. If for any reason you are refused follow-up, please contact the [facility] Emergency Department at and asked to speak to the emergency department charge nurse. If you do not have a primary care doctor, please follow up with the clinics below within 3-5 days. [facility] - Primary Care [address] [place] [address] [id number] [address] [address] Sepsis Event Note (ED) - Evaluation Sepsis Screening Result: No Definite Risk - Focused Exam Vital Signs: Vital Signs Temp Pulse Resp BP Pulse Ox 04/14/21 03:16 95.6 F L 70 18 125/77 94 L - My Orders Last 24 Hours: My Active Orders 04/14/21 03:27 Lactated Ringers [Ringers, Lactated] 1,000 ml IV .BOLUS Ondansetron [Zofran] 4 mg IVPUSH ONETIME ONE - Assessment/Plan Last 24 Hours: My Active Orders 04/14/21 03:27 Lactated Ringers [Ringers, Lactated] 1,000 ml IV .BOLUS Ondansetron [Zofran] 4 mg IVPUSH ONETIME ONE
[2021-04-14 05:49] VITALS: BP 105/54; PULSE 54
== END 2021-04-14 04:37 | disposition home or self-care (01) ==
LOC: MW.ED 02:55
DX: F10.129 Alcohol abuse with intoxication, unspecified (principal)
CPT/HCPCS: 96374; 99283; J2405; J7120

== ENCOUNTER 2021-07-26 03:34 | Emergency (ER) | payer OTHER ==
[2021-07-26] MEDS ORDERED: Ondansetron 4 MG/2 ML SDV IVPUSH ONE (03:48)
[2021-07-26] MEDS ORDERED: Lactated Ringers 1,000 ML IV ONE (03:48)
--- NOTE | 2021-07-26 03:50 | EDM.PDOC ---
ED HPI GENERAL MEDICAL PROBLEM - General Chief Complaint: General Stated Complaint: DRANK WAY TO MUCH Time Seen by Provider: 07/26/21 03:38 - History of Present Illness INITIAL COMMENTS - FREE TEXT/NARRATIVE: 21-year-old male with no significant past medical history presents having "drank way too much tonight." He reports nausea but denies any physical pain he denies any coingestion. Denies any fever he was feeling well prior to drinking too much alcohol. Symptoms constant no exacerbating alleviating factors radiation or other associated symptoms. - Related Data Allergies Allergy/AdvReac Type Severity Reaction Status Date / Time Penicillins Allergy Rash Verified 07/26/21 03:40 Home Meds: Home Meds . [No Known Home Meds] 04/14/21 [History] Past Medical History - Past Health History Medical/Surgical History: Denies Medical/Surgical History HEENT History: Reports: None Cardiovascular History: Reports: None Respiratory History: Reports: None Gastrointestinal History: Reports: None Genitourinary History: Reports: None Musculoskeletal History: Reports: None Neurological History: Reports: None Psychiatric History: Reports: ADD, Depression Endocrine/Metabolic History: Reports: None Insulin Pump Model and Certified Registered Nurse Practitioner: None Hematologic History: Reports: None Immunologic History: Reports: None Oncologic (Cancer) History: Reports: None Dermatologic History: Reports: None - Infectious Disease History Infectious Disease History: Reports: None - Past Surgical History Head Surgeries/Procedures: Reports: None HEENT Surgical History: Reports: Adenoidectomy, Oral Surgery, Tonsillectomy GI Surgical History: Reports: Appendectomy Social & Family History - Family History Family Medical History: No Pertinent Family History - Caffeine Use Caffeine Use: Reports: Energy Drinks ED ROS GENERAL - Review of Systems Review Of Systems: See Below Free Text/Narrative/Comment: General: No fever. ENT: No sore throat. Neck: No neck stiffness. Respiratory: No shortness of breath. Cardiac: No chest pain. Gastrointestinal: Per HPI Musculoskeletal: No myalgias/arthralgias. Neurologic: No headache. ED EXAM, GENERAL - Physical Exam Exam: See Below Free Text/Narrative:: General Appearance: No acute distress, appears comfortable Skin: No rash HEENT: Normocephalic/atraumatic, sclera anicteric, mucous membranes moist Neck: Normal range of motion Chest and Lungs: Bilateral breath sounds, clear to auscultation Cardiovascular: Regular rate and rhythm, no murmur Abdomen: Soft, non-tender Back: Normal Musculoskeletal: No edema or tenderness Neurologic: Slurred speech, moves all extremities well, endorses intoxication Psychiatric: Appropriate, cooperative Course - Vital Signs Last Recorded V/S: Last Vital Signs Temp 98.7 F 07/26/21 03:40 Pulse 76 07/26/21 06:01 Resp 17 07/26/21 06:01 BP 127/62 07/26/21 06:01 Pulse Ox 98 07/26/21 06:01 - Orders/Labs/Meds Meds: Medications Discontinued Medications Generic Name Dose Route Start Last Admin Trade Name Freq PRN Reason Stop Dose Admin Lactated Ringer's 1,000 mls @ 999 mls/hr 07/26/21 03:48 07/26/21 03:58 Ringers, Lactated IV 07/26/21 04:48 999 mls/hr .BOLUS ONE Administration Ondansetron HCl 4 mg 07/26/21 03:48 07/26/21 03:59 Ondansetron 4 Mg/2 Ml Sdv IVPUSH 07/26/21 03:49 4 mg ONETIME ONE Administration Departure - Departure Time of Disposition: 06:05 Disposition: Home, Self-Care 01 Condition: Good Clinical Impression: Alcohol intoxication - Discharge Information *PRESCRIPTION DRUG MONITORING PROGRAM REVIEWED*: Not Applicable *COPY OF PRESCRIPTION DRUG MONITORING REPORT IN PATIENT MIRIAN: Not Applicable Instructions: Binge-Drinking Information, Adult Referrals: Franky Mendoza MD [Primary Care Provider] - Forms: ED Department Discharge Additional Instructions: [facility] - Primary Care [address] [place] [address] [id number] [address] [address] The following information is given to patients seen in the emergency department who are being discharged to home. This information is to outline your options for follow-up care. We provide all patients seen in our emergency department with a follow-up referral. The need for follow-up, as well as the timing and circumstances, are variable depending upon the specifics of your emergency department visit. If you don't have a primary care physician on staff, we will provide you with a referral. We always advise you to contact your personal physician following an emergency department visit to inform them of the circumstance of the visit and for follow-up with them and/or the need for any referrals to a consulting specialist. The emergency department will also refer you to a specialist when appropriate. This referral assures that you have the opportunity for follow-up care with a specialist. All of these measure are taken in an effort to provide you with optimal care, which includes your follow-up. Under all circumstances we always encourage you to contact your private physician who remains a resource for coordinating your care. When calling for follow-up care, please make the office aware that this follow-up is from your recent emergency room visit. If for any reason you are refused follow-up, please contact the [facility] Emergency Department at and asked to speak to the emergency department charge nurse. Sepsis Event Note (ED) - Focused Exam Vital Signs: Vital Signs Temp Pulse Resp BP Pulse Ox 07/26/21 06:01 76 17 127/62 98 07/26/21 03:40 98.7 F 85 19 147/95 H 96 - Assessment/Plan Assessment:: 21-year-old male presenting with nausea and vomiting the setting of significant alcohol intoxication. That said patient is speaking spontaneously he is protecting his airway he admits to alcohol intoxication I do not see indication for extensive blood work or imaging at this point he has no signs of head trauma. IV fluids and antinausea medicine will be provided for his symptoms and we will observe to clinical sobriety. Patient now ambulatory with a steady gait felt safe for discharge with girlfriend.
[2021-07-26 06:02] VITALS: BP 127/62; PULSE 76
== END 2021-07-26 06:02 | disposition home or self-care (01) ==
LOC: MW.ED 03:34
DX: F10.129 Alcohol abuse with intoxication, unspecified (principal); Z88.0 Allergy status to penicillin
CPT/HCPCS: 96374; 99283; J2405; J7120

== ENCOUNTER 2021-08-24 17:33 | Emergency (ER) | payer OTHER ==
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
[2021-08-24] MEDS ORDERED: Cephalexin 500 MG Cap PO ONE (17:45)
[2021-08-24] MEDS ORDERED: Lidocaine 1% PF 2 ML SDV INJECT ONE ×2 (17:45→18:20)
[2021-08-24] MEDS ORDERED: EPINEPHrine/Lidocaine/Tetracai Topical Gel 3 ML TOP ONE (18:01)
[2021-08-24] MEDS ORDERED: Acetaminophen/HYDROcodone 325-5 MG Tab PO ONE (18:34)
[2021-08-24 19:37] VITALS: BP 127/85; PULSE 86
== END 2021-08-24 19:37 | disposition home or self-care (01) ==
LOC: MW.ED 17:33
DX: L05.01 Pilonidal cyst with abscess (principal); Z88.0 Allergy status to penicillin
CPT/HCPCS: 10080; 99283; A9270

== ENCOUNTER 2021-11-10 23:38 | Emergency (ER) | payer OTHER ==
[2021-11-11] MEDS ORDERED: Bacitracin Oint 28.35 GM Tube TOP STA (00:49)
[2021-11-11 01:15] VITALS: BP 112/70; PULSE 74
== END 2021-11-11 01:23 | disposition home or self-care (01) ==
LOC: MW.ED 23:38
DX: T20.10XA Burn of first degree of head, face, and neck, unspecified site, initial encounter (principal); Z88.0 Allergy status to penicillin; X10.2XXA Contact with fats and cooking oils, initial encounter
CPT/HCPCS: 99283; A9270

== ENCOUNTER 2022-09-11 17:18 | Emergency (ER) | payer OTHER ==
[2022-09-11] MEDS ORDERED: Cyclobenzaprine 10 MG Tab PO ONE (21:50)
[2022-09-11] MEDS ORDERED: Ketorolac 60 MG/2 ML SDV IM ONE (21:50)
[2022-09-11 23:17] VITALS: BP 123/71; PULSE 76
== END 2022-09-11 22:23 | disposition home or self-care (01) ==
LOC: MW.ED 17:18
DX: S29.012A Strain of muscle and tendon of back wall of thorax, initial encounter (principal); Z88.0 Allergy status to penicillin
CPT/HCPCS: 71046; 96372; 99284; A9270; J1885

== ENCOUNTER 2022-10-18 18:11 | Emergency (ER) | payer OTHER ==
[2022-10-18] MEDS ORDERED: Diazepam 5 MG Tab PO ONE (19:13)
[2022-10-18] MEDS ORDERED: Ketorolac 30 MG/ML SDV IVPUSH ONE (19:13)
[2022-10-18 21:01] LABS: POTASSIUM,K 3.9 mmol/L (3.5-5.1)
[2022-10-18 21:28] VITALS: BP 115/76; PULSE 88
== END 2022-10-18 21:28 | disposition home or self-care (01) ==
LOC: MW.ED 18:11
DX: R07.89 Other chest pain (principal); Z72.0 Tobacco use; Z88.0 Allergy status to penicillin
CPT/HCPCS: 36415; 71045; 80053; 84484; 85025; 85379; 93005; 96374; 99285; A9270; J1885

== ENCOUNTER 2023-05-30 15:27 | Emergency (ER) | payer OTHER ==
[2023-05-31 00:41] VITALS: BP 119/69; PULSE 81
== END 2023-05-30 18:00 | disposition home or self-care (01) ==
LOC: MW.ED 15:27
DX: S62.306A Unspecified fracture of fifth metacarpal bone, right hand, initial encounter for closed fracture (principal); Z88.0 Allergy status to penicillin; W50.0XXA Accidental hit or strike by another person, initial encounter
CPT/HCPCS: 73100-26-RT; 73100-RT; 73130-26-RT; 73130-RT; 99283